=== PATIENT | female | born 1975 | race Caucasian/White ===

== ENCOUNTER 2016-08-12 12:53 | Emergency (ER) | payer OTHER, MEDICAID ==
[2016-08-12] MEDS ORDERED: DEXAMETHASONE 10 MG/ML VIAL PO STA (14:06)
[2016-08-12] MEDS ORDERED: KETOROLAC 60 MG/2 ML VIAL IM STA (14:06)
--- NOTE | 2016-08-12 14:09 | ED Physician Documentation ---
PD HPI BACK PAIN - Stated complaint Stated Complaint: BACK MUSCLE SPASMS - Chief complaint Chief Complaint: Back Pain - History obtained from History obtained from: Patient, Family - History of Present Illness Timing - onset: Today Timing - duration: Hours Timing - details: Gradual onset, Still present Location: Mid Quality: Pain, Spasm, Sharp Associated symptoms: No: Fever, Weakness, Numbness, Incontinent of urine, Unable to urinate, Hematuria, Incontinent of stool Improves with: Rest, Position Worsened by: Movement, Lifting, Twisting, Palpation Contributing factors: Other (The patient does not drink much water she drinks coffee and is likely dehydrated by history) Similar symptoms before: Has not had sx before Recently seen: Not recently seen - Additional information Additional information: 41 y/o female has developed pain in her mid back that is severe and seems to have come without a precipitant. 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 Review of Systems Constitutional: denies: Fever Nose: denies: Congestion Throat: denies: Sore throat Cardiac: denies: Chest pain / pressure, Palpitations Respiratory: denies: Dyspnea, Cough, Wheezing GI: denies: Abdominal Pain, Nausea, Vomiting : denies: Dysuria, Frequency Musculoskeletal: reports: Back pain. 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 - Present Medications Home Medications: Ambulatory Orders Medication Instructions Recorded Confirmed Cyclobenzaprine [Flexeril] 10 mg PO TID PRN #20 tablet 08/12/16 HYDROcod/ACETAM 5/325 [Calhan 5/325] 1 - 2 ea PO Q6H PRN #15 tablet 08/12/16 - Allergies Allergies/Adverse Reactions: Allergies Allergy/AdvReac Type Severity Reaction Status Date / Time codeine AdvReac Unknown Verified 08/12/16 13:08 - Social History Does the pt smoke?: No Smoking Status: Never smoker Does the pt drink ETOH?: No Does the pt have substance abuse?: No - Immunizations Immunizations are current?: Yes - POLST Patient has POLST: No PD ED PE NORMAL - Vitals Vital signs reviewed: Yes (hypertensive ) - General General: Well developed/nourished, Other (The patient appears to be in pain and is moving slowly ) - HEENT HEENT: Atraumatic, PERRL, EOMI - Cardiac Cardiac: RRR, No murmur - Respiratory Respiratory: No respiratory distress, Clear bilaterally - Abdomen Abdomen: Soft, Non tender - Back Back: No CVA TTP, Other (There is tenderness to palpation of the lower thoracic parapinous muscles that appear to be in spasm more to the left. ) - Derm Derm: Warm and dry, No rash - Extremities Extremities: No deformity, No edema - Neuro Neuro: Alert and oriented X 3, No motor deficit, No sensory deficit, Normal speech - Psych Psych: Normal mood, Normal affect Results - Vitals Vitals: Vital Signs - 24 hr 08/12/16 13:07 Temperature 36.4 C L Heart Rate 91 Respiratory 18 Rate Blood Pressure 123/84 H O2 Saturation 97 Oxygen O2 Source Room air Procedures - IVC sono (time) 1400 Bedside IVC sono: IVC measures (cm) (0.77), IVC collapsed c insp (cm) (complete) , Significant dehydration PD MEDICAL DECISION MAKING - ED course Complexity details: reviewed results, re-evaluated patient, considered differential, d/w patient, d/w family ED course: 41 y/o female with acute back spasm is found to be significantly dehydrated. She does not drink much fluid and it has been warmed up in the past 3 days. She is able to hydrate orally and here in the ED she is given deacdron and toradal. Departure - Departure Disposition: 01 Home, Self Care Clinical Impression: Back spasm Condition: Stable Instructions: ED Spasm Back No Trauma Prescriptions: Cyclobenzaprine [Flexeril] 10 mg PO TID PRN #20 tablet PRN Reason: Spasms HYDROcod/ACETAM 5/325 [Calhan 5/325] 1 - 2 ea PO Q6H PRN #15 tablet PRN Reason: Pain Comments: Today in the Emergency Department your blood pressure was elevated. This can happen from the stress of the visit itself, from a current illness or circumstance or from uncontrolled hypertension. If you take blood pressure medications take your usual mediations, have your blood pressure re-checked in an appropriate setting and follow up any elevation with your primary care doctor. Forms: Activity restrictions
[2016-08-12] MEDS ORDERED: CHERRY SYRUP 10 ML UDC PO ONE (14:11)
[2016-08-12] MEDS ORDERED: DEXAMETHASONE 10 MG/ML VIAL ONE (14:11)
[2016-08-12] MEDS ORDERED: KETOROLAC 60 MG/2 ML VIAL ONE (14:11)
[2016-08-12 14:30] VITALS: BP 141/94
== END 2016-08-12 15:22 | disposition home or self-care (01) ==
LOC: ED 12:53
DX: M62.830 Muscle spasm of back (principal); E86.0 Dehydration; R03.0 Elevated blood-pressure reading, without diagnosis of hypertension
CPT/HCPCS: 96372; 99283; A9270

== ENCOUNTER 2017-01-04 18:43 | Emergency (ER) | payer MEDICAID, OTHER ==
[2017-01-04 19:02] VITALS: BP 151/85
[2017-01-04] MEDS ORDERED: KETOROLAC 60 MG/2 ML VIAL IVP STA (19:21)
[2017-01-04] MEDS ORDERED: diphenhydrAMINE INJ 50 MG/ML VIAL IVP STA (19:21)
[2017-01-04] MEDS ORDERED: PROCHLORPERAZINE 10 MG/2 ML VIAL IVP STA (19:21)
[2017-01-04] MEDS ORDERED: SODIUM CHLORIDE 0.9% 1,000 ML IV ONE (19:23)
--- NOTE | 2017-01-04 19:23 | ED Physician Documentation ---
PD HPI HEADACHE - Stated complaint Stated Complaint: DUNN/VOMITING - Chief complaint Chief Complaint: Neuro - History obtained from History obtained from: Patient, Friend - History of Present Illness Timing - onset: Today Timing - onset during: Rest Timing - duration: Hours (5) Timing - details: Gradual onset Pain level max: 8 Pain level now: 8 Location: Left Quality: Throbbing, Aching. No: Thunderclap Associated symptoms: Nausea, Vomiting. No: Fever, Stiff neck, Weakness, Numbness, Syncope Improved by: Rest, Dark room Worsened by: Light, Noise Contributing factors: No: Anticoagulated, Possible carbon monoxide, Hypertension , Recent illness, Trauma Similar symptoms before: Diagnosis (migraines) Recently seen: Not recently seen - Additional information Additional information: took her imitrex, but vomited. Review of Systems Ten Systems: 10 systems reviewed and negative Constitutional: denies: Fever, Chills Ears: denies: Ear pain Nose: denies: Rhinorrhea / runny nose, Congestion Throat: denies: Sore throat Cardiac: denies: Chest pain / pressure Respiratory: denies: Cough GI: reports: Nausea, Vomiting Skin: denies: Rash Musculoskeletal: denies: Neck pain, Back pain Neurologic: reports: Headache. 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 - Present Medications Home Medications: Ambulatory Orders Medication Instructions Recorded Confirmed Gabapentin 300 mg PO DAILY 01/04/17 01/04/17 Metoprolol Succinate [Toprol Xl] 25 mg PO DAILY 01/04/17 01/04/17 - Allergies Allergies/Adverse Reactions: Allergies Allergy/AdvReac Type Severity Reaction Status Date / Time codeine AdvReac Unknown Verified 08/12/16 13:08 - Social History Does the pt smoke?: No Smoking Status: Never smoker Does the pt drink ETOH?: No Does the pt have substance abuse?: No - Immunizations Immunizations are current?: Yes - POLST Patient has POLST: No PD ED PE NORMAL - Vitals Vital signs reviewed: Yes - General General: Alert and oriented X 3, Other (appears uncomfortable) - HEENT HEENT: PERRL, EOMI, Ears normal, Moist mucous membranes, Pharynx benign - Neck Neck: Supple, no meningeal sign - Cardiac Cardiac: RRR - Respiratory Respiratory: No respiratory distress, Clear bilaterally - Abdomen Abdomen: Soft, Non tender, Non distended - Back Back: No spinal TTP - Derm Derm: Warm and dry - Extremities Extremities: No edema, No calf tenderness / cord - Neuro Neuro: Alert and oriented X 3, customer advisor 2-12 intact, No motor deficit, No sensory deficit, Normal speech, Other (Normal cerebellar test) - Psych Psych: Normal mood, Normal affect Results - Vitals Vitals: Vital Signs - 24 hr 01/04/17 18:51 Temperature 36.1 C L Heart Rate 87 Respiratory 20 Rate Blood Pressure 151/85 H O2 Saturation 99 Oxygen O2 Source Room air - Labs Labs: Laboratory Tests 01/04/17 01/04/17 19:35 19:35 WBC 8.9 RBC 4.93 Hgb 14.8 Hct 43.3 MCV 87.8 MCH 30.1 MCHC 34.3 RDW 12.6 Plt Count 239 MPV 7.4 L Neut # 6.7 H Lymph # 1.6 [place] # 0.5 Eos # 0.1 Baso # 0.1 Absolute Nucleated RBC 0.00 Nucleated RBC % 0.0 Sodium 137 Potassium 3.6 Chloride 103 Carbon Dioxide 24 Anion Gap 10.0 BUN 15 Creatinine 0.7 Estimated GFR (MDRD) 93 Glucose 117 H Calcium 9.4 PD MEDICAL DECISION MAKING - ED course Complexity details: reviewed results, re-evaluated patient, considered differential, d/w patient ED course: Patient is a 41-year-old female who presents to the emergency department with a migraine headache. Given Toradol, Compazine, Benadryl, IV fluids. Nausea and vomiting resolved. Headache decreased down to a 5 out of 10 and she requests to go home at this time. No evidence of subarachnoid hemorrhage, meningitis, encephalitis. No evidence of tumor. Patient counseled regarding signs and symptoms for which I believe and urgent re-evaluation would be necessary. Patient with good understanding of and agreement to plan and is comfortable going home at this time This document was made in part using voice recognition software. While efforts are made to proofread this document, sound alike and grammatical errors may occur. Departure - Departure Disposition: 01 Home, Self Care Clinical Impression: Migraine Qualifiers: Migraine type: unspecified Status migrainosus presence: without status migrainosus Intractability: not intractable Qualified Code(s): G43.909 - Migraine, unspecified, not intractable, without status migrainosus Condition: Good Instructions: ED Headache Migraine Follow-Up: Pedro Mireles DO [Primary Care Provider] - Within 1 week Comments: Do not drive for the next 8 hours. Return if you worsen. Your blood pressure was elevated today on check in to the emergency department. This does not mean that you have hypertension, it is a common phenomenon to check into the emergency department and have elevated blood pressure. I recommend that you see your primary care physician within the week to have it rechecked when you're feeling better. Discharge Date/Time: 01/04/17 20:24
[2017-01-04] MEDS ORDERED: diphenhydrAMINE INJ 50 MG/ML VIAL ONE (19:31)
[2017-01-04] MEDS ORDERED: KETOROLAC 60 MG/2 ML VIAL ONE (19:31)
[2017-01-04] MEDS ORDERED: PROCHLORPERAZINE 10 MG/2 ML VIAL ONE (19:31)
[2017-01-04 19:47] LABS: BASOPHILS # (AUTO) 0.1 10^3/uL (0.0-0.1); BASOPHILS % (AUTO) 0.6 %; EOSINOPHILS # (AUTO) 0.1 10^3/uL (0.0-0.7); EOSINOPHILS % (AUTO) 0.8 %; HCT - HEMATOCRIT 43.3 % (37.0-47.0); HGB - HEMOGLOBIN 14.8 g/dL (12.0-16.0); LYMPHOCYTES # (AUTO) 1.6 10^3/uL (1.5-3.5); LYMPHOCYTES % (AUTO) 17.6 %; MEAN CORPUSCULAR HEMOGLOBIN 30.1 pg (27.0-31.0); MEAN CORPUSCULAR HGB CONC 34.3 g/dL (32.0-36.0); MEAN CORPUSCULAR VOLUME 87.8 fL (81.0-99.0); MEAN PLATELET VOLUME 7.4 fL (7.9-10.8); MONOCYTES # (AUTO) 0.5 10^3/uL (0.0-1.0); MONOCYTES % (AUTO) 5.2 %; NEUTROPHILS # (AUTO) 6.7 10^3/uL (1.5-6.6); NEUTROPHILS % (AUTO) 75.8 %; RED BLOOD COUNT 4.93 10^6/uL (4.20-5.40); RED CELL DISTRIBUTION WIDTH 12.6 % (12.0-15.0); UNCORRECTED WHITE BLOOD COUNT 8.9 x10^3/uL; WHITE BLOOD COUNT 8.9 x10^3/uL (4.8-10.8)
[2017-01-04 19:59] LABS: CALCIUM 9.4 mg/dL (8.5-10.3); CREATININE 0.7 mg/dL (0.4-1.0); POTASSIUM 3.6 mmol/L (3.5-5.0)
== END 2017-01-04 20:24 | disposition home or self-care (01) ==
LOC: ED 18:43
DX: G43.909 Migraine, unspecified, not intractable, without status migrainosus (principal); R03.0 Elevated blood-pressure reading, without diagnosis of hypertension
CPT/HCPCS: 36415; 80048; 85025; 96361; 96374; 96375; 99283; 99284

== ENCOUNTER 2017-03-27 17:17 | Emergency (ER) | payer OTHER ==
--- NOTE | 2017-03-27 18:06 | ED Physician Documentation ---
History of Present Illness - Stated complaint Stated Complaint: SHAKY/DIZZY - Chief complaint Chief Complaint: General - History obtained from History obtained from: Patient, Family - History of Present Illness Timing: Today Pain level max: 0 Pain level now: 0 Improved by: nothing Worsened by: nothing - Additonal information Additional information: Patient is a 41-year-old female who states she has been feeling like her heart has been "off" over the past several days. Has a history of tachycardia, but states that this feels different. Tried to see her doctor and was referred here for evaluation. She has no chest pain, no shortness of breath. She states that she feels like this may be her anxiety. She did drink a cup of coffee today. She states that she seems to notice this more when she is trying to go to bed at night or when she is resting. Does not seem to bother her when she is up moving around and busy. Review of Systems Constitutional: denies: Fever, Chills Nose: denies: Rhinorrhea / runny nose, Congestion Throat: denies: Sore throat Cardiac: reports: Palpitations. 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 - Allergies Allergies/Adverse Reactions: Allergies Allergy/AdvReac Type Severity Reaction Status Date / Time codeine AdvReac Unknown Verified 03/27/17 18:27 - Social History Does the pt smoke?: No Smoking Status: Never smoker Does the pt drink ETOH?: No Does the pt have substance abuse?: No - Immunizations Immunizations are current?: Yes - POLST Patient has POLST: No PD ED PE NORMAL - Vitals Vital signs reviewed: Yes - General General: Alert and oriented X 3, No acute distress, Well developed/nourished - HEENT HEENT: Moist mucous membranes - Neck Neck: Supple, no meningeal sign - Cardiac Cardiac: RRR, No murmur, Strong equal pulses - Respiratory Respiratory: No respiratory distress, Clear bilaterally - Derm Derm: Warm and dry - Extremities Extremities: No edema - Neuro Neuro: Alert and oriented X 3 - Psych Psych: Normal mood, Normal affect Results - Vitals Vitals: Vital Signs - 24 hr 03/27/17 03/27/17 17:22 19:36 Temperature 36.0 C L Heart Rate 76 83 Respiratory 16 18 Rate Blood Pressure 125/83 H 137/93 H O2 Saturation 99 100 Oxygen O2 Source Room air - EKG (time done) 1732 Rate: Rate (enter#) (81) Rhythm: NSR Carmen: Normal Intervals: Normal [place] QRS: Normal Ischemia: Normal ST segments - Labs Labs: Laboratory Tests 03/27/17 03/27/17 03/27/17 18:30 18:30 18:30 WBC 8.1 RBC 4.89 Hgb 14.5 Hct 42.3 MCV 86.5 MCH 29.6 MCHC 34.2 RDW 12.5 Plt Count 280 MPV 7.0 L Neut # 5.3 Lymph # 2.1 Walsh # 0.5 Eos # 0.1 Baso # 0.1 Absolute Nucleated RBC 0.01 Nucleated RBC % 0.1 Sodium 136 Potassium 3.7 Chloride 100 L Carbon Dioxide 26 Anion Gap 10.0 BUN 14 Creatinine 0.8 Estimated GFR (MDRD) 80 L Glucose 96 Calcium 9.7 TSH 1.60 Free T4 0.87 PD MEDICAL DECISION MAKING - ED course Complexity details: reviewed results, re-evaluated patient, considered differential, d/w patient, d/w family ED course: Patient is a 41-year-old female who presents to the emergency department with palpitations. No acute findings on telemetry. Even when she was experiencing symptoms, her telemetry did not change. No PVCs or PACs. No cardiac arrhythmia. Normal electrolytes and thyroid testing. We will have her follow- up with her doctor for further evaluation and care. Patient counseled regarding signs and symptoms for which I believe and urgent re-evaluation would be necessary. Patient with good understanding of and agreement to plan and is comfortable going home at this time This document was made in part using voice recognition software. While efforts are made to proofread this document, sound alike and grammatical errors may occur. Departure - Departure Disposition: 01 Home, Self Care Clinical Impression: Palpitations Condition: Good Instructions: ED Palpitations Follow-Up: Pedro Mireles DO [Primary Care Provider] - Within 1 week Comments: Return if you worsen. Your labs are normal today. Discharge Date/Time: 03/27/17 19:42
[2017-03-27 18:38] LABS: BASOPHILS # (AUTO) 0.1 10^3/uL (0.0-0.1); BASOPHILS % (AUTO) 0.9 %; EOSINOPHILS # (AUTO) 0.1 10^3/uL (0.0-0.7); EOSINOPHILS % (AUTO) 1.2 %; HGB - HEMOGLOBIN 14.5 g/dL (12.0-16.0); LYMPHOCYTES # (AUTO) 2.1 10^3/uL (1.5-3.5); LYMPHOCYTES % (AUTO) 25.8 %; MEAN CORPUSCULAR HEMOGLOBIN 29.6 pg (27.0-31.0); MEAN CORPUSCULAR HGB CONC 34.2 g/dL (32.0-36.0); MEAN CORPUSCULAR VOLUME 86.5 fL (81.0-99.0); MONOCYTES # (AUTO) 0.5 10^3/uL (0.0-1.0); MONOCYTES % (AUTO) 6.4 %; NEUTROPHILS # (AUTO) 5.3 10^3/uL (1.5-6.6); NEUTROPHILS % (AUTO) 65.7 %; PLT - PLATELET COUNT 280 10^3/uL (130-450); RED BLOOD COUNT 4.89 10^6/uL (4.20-5.40); RED CELL DISTRIBUTION WIDTH 12.5 % (12.0-15.0); WHITE BLOOD COUNT 8.1 x10^3/uL (4.8-10.8)
[2017-03-27 18:47] LABS: CALCIUM 9.7 mg/dL (8.5-10.3); CREATININE 0.8 mg/dL (0.4-1.0)
[2017-03-27 19:07] LABS: THYROID STIMULATING HORMONE 1.6 uIU/mL (0.34-5.60)
[2017-03-27 19:11] LABS: FREE T4 (FREE THYROXINE) 0.87 ng/dL (0.58-1.64)
[2017-03-27 19:41] VITALS: BP 137/93
== END 2017-03-27 19:42 | disposition home or self-care (01) ==
LOC: ED 17:17
DX: R00.2 Palpitations (principal)
CPT/HCPCS: 36415; 80048; 84439; 84443; 85025; 93005; 99283

== ENCOUNTER 2018-07-31 18:47 | Emergency (ER) | payer OTHER ==
[2018-07-31 19:26] LABS: BASOPHILS # (AUTO) 0.1 10^3/uL (0.0-0.1); BASOPHILS % (AUTO) 1.1 %; EOSINOPHILS # (AUTO) 0.1 10^3/uL (0.0-0.7); EOSINOPHILS % (AUTO) 1.7 %; HGB - HEMOGLOBIN 13.4 g/dL (12.0-16.0); LYMPHOCYTES # (AUTO) 2.4 10^3/uL (1.5-3.5); LYMPHOCYTES % (AUTO) 35.7 %; MEAN CORPUSCULAR HEMOGLOBIN 30.3 pg (27.0-31.0); MEAN CORPUSCULAR HGB CONC 34.4 g/dL (32.0-36.0); MEAN CORPUSCULAR VOLUME 88.2 fL (81.0-99.0); MEAN PLATELET VOLUME 7.3 fL (7.9-10.8); MONOCYTES # (AUTO) 0.4 10^3/uL (0.0-1.0); MONOCYTES % (AUTO) 6.4 %; NEUTROPHILS # (AUTO) 3.7 10^3/uL (1.5-6.6); NEUTROPHILS % (AUTO) 55.1 %; PLT - PLATELET COUNT 287 10^3/uL (130-450); RED BLOOD COUNT 4.42 10^6/uL (4.20-5.40); RED CELL DISTRIBUTION WIDTH 12.9 % (12.0-15.0); WHITE BLOOD COUNT 6.7 x10^3/uL (4.8-10.8)
[2018-07-31 19:52] LABS: ALBUMIN 4.3 g/dL (3.2-5.5); ALBUMIN/GLOBULIN RATIO 1.3 (1.0-2.2); BILIRUBIN,TOTAL 0.5 mg/dL (0.2-1.0); CREATININE 0.8 mg/dL (0.4-1.0); TOTAL PROTEIN 7.5 g/dL (6.7-8.2)
--- NOTE | 2018-07-31 19:57 | ED Physician Documentation ---
PD HPI CHEST PAIN - Stated complaint Stated Complaint: TIGH CHEST - Chief complaint Chief Complaint: Cardiac - History obtained from History obtained from: Patient - History of Present Illness Timing - onset: Other (This is a 42-year-old woman with history of "angina." She says that she was diagnosed with this via an event monitor a few years ago in [place]. Subsequently was on metoprolol and propranolol with relief. She also has chronic pedal edema for which she takes on and off furosemide. For the last week she has had a different new chest pain. Its and episodic squeezing the last 2 to 3 seconds, worse with exertion. She is dizzy and has a headache with it. Currently is pain-free.) Review of Systems Ten Systems: 10 systems reviewed and negative Constitutional: denies: Fever, Chills Cardiac: reports: Pedal edema. 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 - Present Medications Home Medications: Ambulatory Orders Medication Instructions Recorded Confirmed Furosemide [Lasix] 20 mg PO DAILY PRN #20 tablet 07/31/18 RX: Potassium Chloride 10 meq PO DAILY PRN #20 tablet.er 07/31/18 - Allergies Allergies/Adverse Reactions: Allergies Allergy/AdvReac Type Severity Reaction Status Date / Time codeine AdvReac Unknown Verified 07/31/18 19:41 - Social History Does the pt smoke?: No Smoking Status: Former smoker Does the pt drink ETOH?: No Does the pt have substance abuse?: No - Immunizations Immunizations are current?: Yes - POLST Patient has POLST: No PD ED PE NORMAL - Vitals Vital signs reviewed: Yes - General General: Alert and oriented X 3, No acute distress - HEENT HEENT: PERRL, EOMI - Neck Neck: Supple, no meningeal sign, No bony TTP - Cardiac Cardiac: RRR, No murmur - Respiratory Respiratory: No respiratory distress, Clear bilaterally - Abdomen Abdomen: Non tender - Derm Derm: Normal color, Warm and dry - Extremities Extremities: Other (Mild pitting pedal edema, symmetric without calf tenderness) - Neuro Neuro: Alert and oriented X 3, Normal speech Results - Vitals Vitals: Vital Signs - 24 hr 07/31/18 07/31/18 07/31/18 19:00 19:34 20:24 Temperature 36.2 C L 36.5 C Heart Rate 88 76 77 Respiratory 18 21 20 Rate Blood Pressure 134/64 H 129/83 H 115/72 O2 Saturation 99 98 97 Oxygen O2 Source Room air - EKG (time done) 1853 Rate: Rate (enter#) (81) Rhythm: NSR Reese: Normal Intervals: Normal [place] QRS: Normal Ischemia: Non specific changes (Q III only) Computer interpretation: Agree with computer - Labs Labs: Laboratory Tests 07/31/18 07/31/18 07/31/18 19:20 19:20 19:20 WBC 6.7 RBC 4.42 Hgb 13.4 Hct 39.0 MCV 88.2 MCH 30.3 MCHC 34.4 RDW 12.9 Plt Count 287 MPV 7.3 L Neut # (Auto) 3.7 Lymph # (Auto) 2.4 [place] # (Auto) 0.4 Eos # (Auto) 0.1 Baso # (Auto) 0.1 Absolute Nucleated RBC 0.00 Nucleated RBC % 0.0 Sodium 140 Potassium 3.5 Chloride 108 Carbon Dioxide 23 Anion Gap 9.0 BUN 15 Creatinine 0.8 Estimated GFR (MDRD) 79 L Glucose 91 Calcium 9.0 Total Bilirubin 0.5 AST 23 ALT 20 Alkaline Phosphatase 71 Troponin I < 0.04 Total Protein 7.5 Albumin 4.3 Globulin 3.2 Albumin/Globulin Ratio 1.3 Lipase 27 - Rads (name of study) 2v chest Radiology: EMP read contemporaneously (normal) PD MEDICAL DECISION MAKING - ED course ED course: 42-year-old woman with history of angina, although she has not had a thorough cardiac work-up except she has had an event monitor in the past. She is never been stressed. She has had atypical very fleeting chest pains which would suggest a noncardiac or not least non-coronary cause. She had episodes While here in the department which did not correspond to any ectopy on the monitor. She also requested a refill of Lasix which she is taken in the past for pedal edema. There is no evidence of heart failure. Departure - Departure Disposition: 01 Home, Self Care Clinical Impression: Atypical chest pain Condition: Good Record reviewed to determine appropriate education?: Yes Instructions: ED Chest Pain Atypical Unkn Cause Prescriptions: Furosemide [Lasix] 20 mg PO DAILY PRN #20 tablet PRN Reason: edema RX: Potassium Chloride 10 meq PO DAILY PRN #20 tablet.er PRN Reason: take with furosemide Comments: Follow-up with your primary care physician, discuss a stress test. Return if worse or new symptoms develop. Discharge Date/Time: 07/31/18 20:25
--- NOTE | 2018-07-31 19:58 | XRAY Report ---
Reason: chest pain Procedure Date: 07/31/2018 Accession Number: [id number] / [id number] Procedure: XR - Chest 2 View X-Ray CPT Code: 02524 FULL RESULT: EXAM: CHEST RADIOGRAPHY EXAM DATE: 07/31/2018 07:31 PM. CLINICAL HISTORY: Chest pain and shortness of breath on exertion for 2 weeks. COMPARISON: None. TECHNIQUE: 2 views. FINDINGS: Lungs/Pleura: No focal opacities evident. No pleural effusion. No pneumothorax. Normal volumes. Mediastinum: Heart and mediastinal contours are unremarkable. Other: No osseous abnormality identified. IMPRESSION: Normal 2-view chest radiography. [facility]
[2018-07-31 20:25] VITALS: BP 115/72
== END 2018-07-31 20:25 | disposition home or self-care (01) ==
LOC: ED 18:47
DX: R07.89 Other chest pain (principal); R60.0 Localized edema; Z86.79 Personal history of other diseases of the circulatory system; Z87.891 Personal history of nicotine dependence
CPT/HCPCS: 36415; 71046; 80053; 83690; 84484; 85025; 93005; 99284

== ENCOUNTER 2019-03-23 20:33 | Emergency (ER) | payer OTHER ==
[2019-03-23 20:54] LABS: BASOPHILS % (AUTO) 0.4 %; EOSINOPHILS # (AUTO) 0.1 10^3/uL (0.0-0.7); EOSINOPHILS % (AUTO) 1.3 %; LYMPHOCYTES # (AUTO) 2.2 10^3/uL (1.5-3.5); LYMPHOCYTES % (AUTO) 26.1 %; MEAN CORPUSCULAR HEMOGLOBIN 30.3 pg (27.0-31.0); MEAN CORPUSCULAR HGB CONC 33.5 g/dL (32.0-36.0); MEAN CORPUSCULAR VOLUME 90.5 fL (81.0-99.0); MEAN PLATELET VOLUME 9.2 fL (7.9-10.8); MONOCYTES # (AUTO) 0.6 10^3/uL (0.0-1.0); MONOCYTES % (AUTO) 7.5 %; NEUTROPHILS # (AUTO) 5.5 10^3/uL (1.5-6.6); NEUTROPHILS % (AUTO) 64.3 %; PLT - PLATELET COUNT 254 10^3/uL (130-450); RED BLOOD COUNT 4.62 10^6/uL (4.20-5.40); RED CELL DISTRIBUTION WIDTH 11.9 % (12.0-15.0); WHITE BLOOD COUNT 8.6 x10^3/uL (4.8-10.8)
[2019-03-23 20:57] LABS: BILIRUBIN,URINE NEGATIVE (NEGATIVE); GLUCOSE, URINE (UA) NEGATIVE (NEGATIVE); KETONES,URINE (UA) NEGATIVE (NEGATIVE); LEUKOCYTE ESTERASE, URINE NEGATIVE (NEGATIVE); NITRITE,URINE NEGATIVE (NEGATIVE); OCCULT BLOOD,URINE TRACE-INTA (NEGATIVE); PH,URINE 5.5 PH (5.0-7.5); PROTEIN,URINE NEGATIVE (NEGATIVE); UROBILINOGEN,URINE 0.2 (NORMAL) E.U./dL (NORMAL)
[2019-03-23 21:01] LABS: CLARITY,URINE CLEAR (CLEAR); HCG UR QUAL NEGATIVE
[2019-03-23 21:06] LABS: ALBUMIN 4.3 g/dL (3.2-5.5); ALBUMIN/GLOBULIN RATIO 1.3 (1.0-2.2); BILIRUBIN,TOTAL 0.5 mg/dL (0.2-1.0); CALCIUM 9.1 mg/dL (8.5-10.3); CREATININE 0.8 mg/dL (0.4-1.0); TOTAL PROTEIN 7.7 g/dL (6.7-8.2)
[2019-03-23] MEDS ORDERED: SODIUM CHLORIDE 0.9% 1,000 ML IV ONE (21:19)
--- NOTE | 2019-03-23 21:23 | ED Physician Documentation ---
PD HPI FEMALE - Stated complaint Stated Complaint: F ,BACK PX - Chief complaint Chief Complaint: UTI - History obtained from History obtained from: Patient, Family - History of Present Illness Timing - onset: How many days ago (3) Timing - duration: Days (3) Timing - details: Gradual onset, Still present Associated symptoms: Dysuria, Urinary frequency Contributing factors: No: Similar symptoms before: Diagnosis (UTI) Recently seen: Surgery - Additional information Additional information: 43-year-old female with a right kidney stone that has undergone lithotripsy has fragments of the stone remaining in the right collecting system. She is due to have a repeat lithotripsy at the end of this month. She is now having symptoms of urinary urgency and dysuria feeling like she has an irritation to her urethra and pain after she urinates in her bladder itself. She has had these symptoms previously when she has passed kidney stone. She is currently on antibiotic for an ear infection she is on some amoxicillin and she states that she has had yeast infection previously and this does not feel anything like that. She is not having any redness or itching. She is not having any discharge. Review of Systems Constitutional: denies: Fever, Chills Eyes: denies: Decreased vision Ears: denies: Ear pain Nose: denies: Congestion Throat: denies: Sore throat Cardiac: denies: Chest pain / pressure, Palpitations Respiratory: denies: Dyspnea, Cough GI: denies: Abdominal Pain, Nausea, Vomiting : reports: Dysuria, Frequency Skin: denies: Rash Musculoskeletal: reports: Back pain (Right flank pain is sore.). 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 EQUIPMENT OPERATOR: Hysterectomy - Present Medications Home Medications: Ambulatory Orders Medication Instructions Recorded Confirmed Furosemide [Lasix] 20 mg PO DAILY PRN #20 tablet 07/31/18 Potassium Chloride 10 meq PO DAILY PRN #20 tablet.er 07/31/18 Amoxicillin 500 mg PO BID 03/23/19 03/23/19 - Allergies Allergies/Adverse Reactions: Allergies Allergy/AdvReac Type Severity Reaction Status Date / Time codeine AdvReac Unknown Verified 03/23/19 20:42 hydrocodone AdvReac Itching Verified 03/23/19 20:43 - Social History Does the pt smoke?: No Smoking Status: Former smoker Does the pt drink ETOH?: No Does the pt have substance abuse?: No - Immunizations Immunizations are current?: Yes - POLST Patient has POLST: No PD ED PE NORMAL - Vitals Vital signs reviewed: Yes - General General: Alert and oriented X 3, No acute distress, Well developed/nourished - HEENT HEENT: Atraumatic, PERRL, EOMI - Neck Neck: Supple, no meningeal sign - Cardiac Cardiac: RRR, No murmur - Respiratory Respiratory: No respiratory distress, Clear bilaterally - Abdomen Abdomen: Normal bowel sounds, Soft, Non tender, Non distended, No organomegaly - Back Back: No CVA TTP, No spinal TTP - Derm Derm: Normal color, Warm and dry, No rash - Extremities Extremities: No deformity, No edema, No calf tenderness / cord - Neuro Neuro: Alert and oriented X 3, manager food beverage 2-12 intact, No motor deficit, No sensory deficit, Normal speech Eye Opening: Spontaneous Motor: Obeys Commands Verbal: Oriented GCS Score: 15 - Psych Psych: Normal mood, Normal affect Results - Vitals Vitals: Vital Signs - 24 hr 03/23/19 20:40 Temperature 36.7 C Heart Rate 80 Respiratory 18 Rate Blood Pressure 147/85 H O2 Saturation 98 Oxygen O2 Source Room air - Labs Labs: Laboratory Tests 03/23/19 03/23/19 03/23/19 20:50 20:50 20:50 WBC 8.6 RBC 4.62 Hgb 14.0 Hct 41.8 MCV 90.5 MCH 30.3 MCHC 33.5 RDW 11.9 L Plt Count 254 MPV 9.2 Neut # (Auto) 5.5 Lymph # (Auto) 2.2 [place] # (Auto) 0.6 Eos # (Auto) 0.1 Baso # (Auto) 0.0 Absolute Nucleated RBC 0.00 Nucleated RBC % 0.0 Sodium 137 Potassium 3.4 L Chloride 102 Carbon Dioxide 28 Anion Gap 7.0 BUN 14 Creatinine 0.8 Estimated GFR (MDRD) 79 L Glucose 109 H Calcium 9.1 Total Bilirubin 0.5 AST 15 ALT 14 Alkaline Phosphatase 71 Total Protein 7.7 Albumin 4.3 Globulin 3.4 Albumin/Globulin Ratio 1.3 Lipase 32 Urine Color YELLOW Urine Clarity CLEAR Urine pH 5.5 Ur Specific [place] >=1.030 H Urine Protein NEGATIVE Urine Glucose (UA) NEGATIVE Urine Ketones NEGATIVE Urine Occult Blood TRACE-INTA Urine Nitrite NEGATIVE Urine Bilirubin NEGATIVE Urine Urobilinogen 0.2 (NORMAL) Ur Leukocyte Esterase NEGATIVE Ur Microscopic Review NOT INDICATED Urine Culture Comments NOT INDICATED Urine HCG, Qual NEGATIVE - Rads (name of study) ct ab/pel w/o Radiology: Prelim report reviewed (Impression: Nonobstructing 4 mm lower pole right renal calculus.. Otherwise unremarkable exam.), EMP read indepedently, See rad report Procedures - Bedside sono Bedside sono by EMP: With use of bedside ultrasound the kidneys are both imaged they are sonographically nontender there is no evidence of obvious hydronephrosis on either side. - IVC sono (time) 2119 Bedside IVC sono: IVC measures (cm) (0.94), IVC collapsed c insp (cm) (complete), Dehydration (est 1-2 liter deficit) PD MEDICAL DECISION MAKING - ED course Complexity details: reviewed results, re-evaluated patient, considered differential, d/w patient, d/w family ED course: 43-year-old female with urinary urgency and dysuria with residual stone in the right collecting system is concerned about the possibility of infection. She most closely relates the symptoms of something this happened previously with passing stone. On my evaluation here this evening she is dehydrated and there is no evidence of hydronephrosis bilaterally. I did discuss with the patient the utilization of CT scanning for the abdomen and pelvis and she wishes to proceed with this despite the risk associated with radiation exposure. The patient is administered saline intravenously there is no evidence of infection on evaluation of the urine. The patient's CT scan shows a 4 mm stone in the right kidney and no obstruction to the collecting system. I suspect the patient's symptoms are related to dehydration and passing the stone recently. Here in the emergency department we have hydrated the patient with a liter of saline and I have asked the patient to bring the CD of her abdomen pelvis to urologist on her next visit. Departure - Departure Disposition: 01 Home, Self Care Clinical Impression: Cystitis, Dehydration Condition: Stable Instructions: ED Dehydration Follow-Up: Pema De La Cruz PA-C [Primary Care Provider] - Comments: Today we did not find any pathology in the urine specimen provided with the exception of a trace amount of blood. Your CT scan showed a 4 mm stone in the right kidney. The stone will eventually need to pass and will likely be able to pass without assistance. Bring the CD of your CAT scan to the urologist with your visit at the end of this month. We did find that you were dehydrated again and this may be contributing to your symptoms of bladder irritation. The recommendation is to drink approximately 2 quarts of fluid per day.
--- NOTE | 2019-03-23 22:11 | CT Report ---
Reason: R flank pain Procedure Date: 03/23/2019 Accession Number: [id number] / [id number] Procedure: CT - Abdomen/Pelvis WO CPT Code: Final Report FULL RESULT: EXAM: CT ABDOMEN AND PELVIS (CT KUB) EXAM DATE: 03/23/2019 09:43 PM. CLINICAL HISTORY: R flank pain. History of lithotripsy February 03. COMPARISONS: None. TECHNIQUE: Routine axial helical CT imaging was performed through the abdomen and pelvis without IV contrast. Reconstructions: Coronal and sagittal. In accordance with CT protocol optimization, one or more of the following dose reduction techniques were utilized for this exam: automated exposure control, adjustment of mA and/or KV based on patient size, or use of iterative reconstructive technique. FINDINGS: Lung Bases: Unremarkable. Right Kidney/Ureter: 4 mm calcific stone in the lower pole calyx of the right kidney. No hydronephrosis. Kidney is otherwise unremarkable in appearance. Left Kidney/Ureter: No stones, hydronephrosis, or hydroureter. No perinephric fat stranding. Other Solid Organs: Noncontrast images of the solid organs are grossly unremarkable. Gallbladder/Bile Ducts: Status post cholecystectomy. No biliary duct dilatation. Peritoneal Cavity: No free fluid, free air or letty adenopathy. Bowel is grossly unremarkable. Pelvic Organs: Status post hysterectomy. There are no bladder stones seen. The urinary bladder is fairly collapsed. Some phleboliths in the pelvis. Vasculature: The abdominal aorta is normal in caliber. Retroaortic left renal vein present. Other: None. IMPRESSION: Nonobstructing 4mm lower pole right renal calculus. Otherwise unremarkable exam. RADIA
[2019-03-23] MEDS ORDERED: POTASSIUM CHLORIDE 20 MEQ TABLET PO STA (22:28)
[2019-03-23 22:45] VITALS: BP 145/93
== END 2019-03-23 22:45 | disposition home or self-care (01) ==
LOC: ED 20:33
DX: N30.90 Cystitis, unspecified without hematuria (principal); E86.0 Dehydration; N20.0 Calculus of kidney; Z87.891 Personal history of nicotine dependence
CPT/HCPCS: 36415; 74176; 80053; 81003; 81025; 83690; 85025; 99284; A9270; 81001; 87086

== ENCOUNTER 2019-06-08 14:45 | Outpatient (CLI) | payer OTHER ==
--- NOTE | 2019-06-09 03:08 | XRAY Report ---
Reason: COUGH Procedure Date: 06/08/2019 Accession Number: [id number] / [id number] Procedure: XR - Chest 2 View X-Ray CPT Code: 45913 Final Report FULL RESULT: EXAM: CHEST RADIOGRAPHY EXAM DATE: 06/08/2019 02:58 PM CLINICAL HISTORY: Cough. COMPARISON: CHEST 2 VIEW 07/31/2018 7:24 PM. TECHNIQUE: 2 views. FINDINGS: Lungs/Pleura: Clear lungs. No pleural effusion. No pneumothorax. Mediastinum: Within exam limitations, the cardiomediastinal contour is normal. Other: Cholecystectomy clips in the right upper quadrant. IMPRESSION: 06/09/2019 03:07 RADIA
== END 2019-06-08 14:46 | disposition home or self-care (01) ==
LOC: DI 14:45
DX: R05 Cough (principal)
CPT/HCPCS: 71046

== ENCOUNTER 2020-02-16 17:33 | Outpatient (CLI) | payer OTHER | END 2020-02-16 17:34 | disposition home or self-care (01) | LOC: COV 17:33 | PROVIDERS: ATTEND Family Medicine | DX: R05 Cough (principal); J02.9 Acute pharyngitis, unspecified; R09.81 Nasal congestion; Z20.828 Contact with and (suspected) exposure to other viral communicable diseases ==

== ENCOUNTER 2020-03-18 19:11 | Emergency (ER) | payer OTHER ==
[2020-03-18 19:20] VITALS: BP 139/89
--- NOTE | 2020-03-18 19:54 | XRAY Report ---
PROCEDURE: Ankle 3 View LT INDICATIONS: fall, ankle pain TECHNIQUE: 3 views of the ankle were acquired. COMPARISON: None. FINDINGS: Bones: No fractures or dislocations. Ankle mortise is normally aligned. No suspicious bony lesions . Soft tissues: No tibiotalar joint effusion. Achilles tendon appears normal. IMPRESSION: No acute osseous abnormality. Reviewed by: Henry Cavazos MD on 03/18/2020 7:52 PM [facility] Approved by: Henry Cavazos MD on 03/18/2020 7:52 PM PST Station ID: [id number]
--- NOTE | 2020-03-18 19:55 | XRAY Report ---
PROCEDURE: Foot 3 View LT INDICATIONS: rolled L foot/injury from hiking TECHNIQUE: 3 views of the foot were acquired. COMPARISON: None. FINDINGS: Bones: No fractures or dislocations. No suspicious bony lesions. Soft tissues: No tibiotalar joint effusion. Achilles tendon appears normal. IMPRESSION: No acute osseous abnormality. Reviewed by: Henry Cavazos MD on 03/18/2020 7:53 PM [facility] Approved by: Henry Cavazos MD on 03/18/2020 7:53 PM [facility] Station ID: [id number]
--- NOTE | 2020-03-18 20:14 | ED Physician Documentation ---
History of Present Illness - Stated complaint Stated Complaint: LEFT ANKLE PX/FOOT INJURY - Chief complaint Chief Complaint: Trauma Ext - History obtained from History obtained from: Patient - History of Present Illness Timing: Today Pain level max: 6 Pain level now: 4 - Additonal information Additional information: 44-year-old female states that she was hiking at [place] today when she rolled her left foot and ankle over a tree root. Worse with walking, better with rest. 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: Hysterectomy - Present Medications Home Medications: Ambulatory Orders Medication Instructions Recorded Confirmed Ibuprofen [Motrin] 800 mg PO Q8H PRN #30 tablet 03/18/20 Tamsulosin HCl [Flomax] 03/18/20 - Allergies Allergies/Adverse Reactions: Allergies Allergy/AdvReac Type Severity Reaction Status Date / Time codeine AdvReac Unknown Verified 03/18/20 19:21 hydrocodone AdvReac Itching Verified 03/18/20 19:21 - Social History Does the pt smoke?: No Smoking Status: Never smoker Does the pt drink ETOH?: No Does the pt have substance abuse?: No - Immunizations Immunizations are current?: Yes - POLST Patient has POLST: No PD ED PE NORMAL - Vitals Vital signs reviewed: Yes - General General: Alert and oriented X 3, No acute distress - Derm Derm: Warm and dry - Extremities Extremities: Other (Mild tenderness to palpation over the lateral malleolus of the left ankle as well as the base of the fifth metatarsal of the left foot. Otherwise normal examination of the foot and ankle. Neurovascular intact) - Neuro Neuro: Alert and oriented X 3 Results - Vitals Vitals: Vital Signs - 24 hr 03/18/20 19:15 Temperature 36.0 C L Heart Rate 90 Respiratory 16 Rate Blood Pressure 139/89 H O2 Saturation 95 Oxygen O2 Source Room air - Rads (name of study) Left ankle x-ray Radiology: Prelim report reviewed, EMP read contemporaneously, See rad report (No acute abnormality) L foot xray Radiology: Prelim report reviewed, EMP read contemporaneously, See rad report (No acute abnormality) PD MEDICAL DECISION MAKING - ED course Complexity details: reviewed results, considered differential, d/w patient ED course: Patient with left ankle/foot sprain. No acute findings on x-ray. Placed in a Aircast. Given crutches. We will have her follow-up with her doctor for further care. Patient counseled regarding signs and symptoms for which I believe and urgent re-evaluation would be necessary. Patient with good understanding of and agreement to plan and is comfortable going home at this time This document was made in part using voice recognition software. While efforts are made to proofread this document, sound alike and grammatical errors may o ccur. Departure - Departure Disposition: Home, Self Care Clinical Impression: Left ankle sprain Qualifiers: Encounter type: initial encounter Involved ligament of ankle: unspecified ligament Qualified Code(s): S93.402A - Sprain of unspecified ligament of left ankle, initial encounter Sprain of left foot Qualifiers: Encounter type: initial encounter Qualified Code(s): S93.602A - Unspecified sprain of left foot, initial encounter Condition: Good Instructions: ED Sprain Foot, ED Sprain Ankle Follow-Up: Pema De La Cruz PA-C [Primary Care Provider] - Within 1 week Prescriptions: Ibuprofen [Motrin] 800 mg PO Q8H PRN #30 tablet PRN Reason: PAIN &/OR FEVER Comments: Your x-rays do not show any acute abnormalities tonight. Follow-up with your doctor for further care. You may bear weight as tolerated. If you are still having pain in 1 week, your doctor may want to repeat x-rays at that time. Discharge Date/Time: 03/18/20 20:18
== END 2020-03-18 20:18 | disposition home or self-care (01) ==
LOC: ED 19:11
DX: S93.402A Sprain of unspecified ligament of left ankle, initial encounter (principal); S93.602A Unspecified sprain of left foot, initial encounter; X50.1XXA Overexertion from prolonged static or awkward postures, initial encounter; Y93.01 Activity, walking, marching and hiking; Y92.838 Other recreation area as the place of occurrence of the external cause
CPT/HCPCS: 99283

== ENCOUNTER 2020-03-26 16:54 | Emergency (ER) | payer OTHER ==
[2020-03-26 17:32] LABS: BASOPHILS % (AUTO) 0.5 %; EOSINOPHILS # (AUTO) 0.1 10^3/uL (0.0-0.7); EOSINOPHILS % (AUTO) 1.7 %; HGB - HEMOGLOBIN 13.7 g/dL (12.0-16.0); LYMPHOCYTES # (AUTO) 1.6 10^3/uL (1.5-3.5); LYMPHOCYTES % (AUTO) 26.6 %; MEAN CORPUSCULAR HEMOGLOBIN 30.2 pg (27.0-31.0); MEAN CORPUSCULAR HGB CONC 33.7 g/dL (32.0-36.0); MEAN CORPUSCULAR VOLUME 89.6 fL (81.0-99.0); MONOCYTES # (AUTO) 0.5 10^3/uL (0.0-1.0); MONOCYTES % (AUTO) 7.7 %; NEUTROPHILS # (AUTO) 3.8 10^3/uL (1.5-6.6); NEUTROPHILS % (AUTO) 63.3 %; PLT - PLATELET COUNT 231 10^3/uL (130-450); RED BLOOD COUNT 4.53 10^6/uL (4.20-5.40); RED CELL DISTRIBUTION WIDTH 11.8 % (12.0-15.0)
[2020-03-26 17:33] LABS: BILIRUBIN,URINE NEGATIVE (NEGATIVE); GLUCOSE, URINE (UA) NEGATIVE (NEGATIVE); KETONES,URINE (UA) NEGATIVE (NEGATIVE); LEUKOCYTE ESTERASE, URINE NEGATIVE (NEGATIVE); NITRITE,URINE NEGATIVE (NEGATIVE); OCCULT BLOOD,URINE NEGATIVE (NEGATIVE); PH,URINE 6.5 PH (5.0-7.5); PROTEIN,URINE NEGATIVE (NEGATIVE); UROBILINOGEN,URINE 0.2 (NORMAL) E.U./dL (NORMAL)
[2020-03-26 17:36] LABS: CLARITY,URINE CLEAR (CLEAR); HCG UR QUAL NEGATIVE
[2020-03-26] MEDS ORDERED: SODIUM CHLORIDE 0.9% 1,000 ML IV STA (17:43)
[2020-03-26] MEDS ORDERED: LIDOCAINE-MPF 2% 7.5 ML in SODIUM CHLORIDE 0.9% 50 ML IV STA (17:43)
[2020-03-26 17:45] LABS: ALBUMIN/GLOBULIN RATIO 1.3 (1.0-2.2); BILIRUBIN,TOTAL 0.2 mg/dL (0.2-1.0); CALCIUM 9.3 mg/dL (8.5-10.3); CREATININE 0.9 mg/dL (0.4-1.0); TOTAL PROTEIN 7.1 g/dL (6.7-8.2)
[2020-03-26] MEDS ORDERED: LIDOCAINE-MPF 2% 5 ML VIAL ONE (18:01)
--- NOTE | 2020-03-26 18:01 | ED Physician Documentation ---
PD HPI ABD PAIN - Stated complaint Stated Complaint: FEMALE - Chief complaint Chief Complaint: Abd Pain - History obtained from History obtained from: Patient - History of Present Illness Timing - onset: How many weeks ago (1) Timing - duration: Weeks (1) Timing - details: Gradual onset Pain level max: 7 Pain level now: 7 Quality: Aching, Pain Location: Other (right flank) Radiation: Other (non-radiating) Improved by: Other (nothing) Worsened by: Other (nothing) - Additional information Additional information: 44-year-old female states that she has a known 3 mm intrarenal stone. She states that she is unable to pass kidney stones and so when she forms them in her kidneys, they do lithotripsy to break them apart. She states she has lithotripsy scheduled on Saturday. Started having dysuria 2 days ago. No fevers. No nausea. No vomiting. She is on Percocet for home for the pain and states that that does help the pain, she was concerned because the pain increased and she thought she may have a UTI today. No vomiting. No nausea. Had an x-ray and CT scan performed last week. No ureteral stones Review of Systems Constitutional: denies: Fever, Chills GI: denies: Vomiting, Diarrhea : reports: Dysuria. 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: Hysterectomy - Present Medications Home Medications: Ambulatory Orders Medication Instructions Recorded Confirmed Ibuprofen [Motrin] 800 mg PO Q8H PRN #30 tablet 03/18/20 03/26/20 Ondansetron Odt [Zofran] 4 mg TL Q6H PRN #10 tablet 03/26/20 Oxycodone HCl/Acetaminophen 1 - 2 each PO Q6H PRN #20 tablet 03/26/20 [Percocet 5-325 mg Tablet] oxyCODONE/ACET 5/325 [Percocet 5 1 tab PO DAILY PRN 03/26/20 03/26/20 mg/325 mg] - Allergies Allergies/Adverse Reactions: Allergies Allergy/AdvReac Type Severity Reaction Status Date / Time codeine AdvReac Hives Verified 03/26/20 16:58 hydrocodone AdvReac Itching Verified 03/18/20 19:21 tamsulosin AdvReac Dizziness Verified 03/26/20 16:59 - Social History Does the pt smoke?: No Smoking Status: Never smoker Does the pt drink ETOH?: No Does the pt have substance abuse?: No - Immunizations Immunizations are current?: Yes - POLST Patient has POLST: No PD ED PE NORMAL - Vitals Vital signs reviewed: Yes - General General: Alert and oriented X 3, No acute distress, Well developed/nourished - HEENT HEENT: PERRL, Moist mucous membranes - Neck Neck: Supple, no meningeal sign - Cardiac Cardiac: RRR, Strong equal pulses - Respiratory Respiratory: No respiratory distress, Clear bilaterally - Abdomen Abdomen: Soft, Non tender, Non distended - Back Back: No CVA TTP - Derm Derm: Warm and dry - Neuro Neuro: Alert and oriented X 3 - Psych Psych: Normal mood, Normal affect Results - Vitals Vitals: Vital Signs - 24 hr 03/26/20 03/26/20 03/26/20 16:59 18:02 18:51 Temperature 36.9 C 36.9 C Heart Rate 82 76 75 Respiratory 18 16 18 Rate Blood Pressure 151/102 H 117/76 115/80 O2 Saturation 100 100 100 Oxygen O2 Source Room air - Labs Labs: Laboratory Tests 03/26/20 03/26/20 03/26/20 17:06 17:20 17:20 WBC 6.0 RBC 4.53 Hgb 13.7 Hct 40.6 MCV 89.6 MCH 30.2 MCHC 33.7 RDW 11.8 L Plt Count 231 MPV 9.0 Neut # (Auto) 3.8 Lymph # (Auto) 1.6 [place] # (Auto) 0.5 Eos # (Auto) 0.1 Baso # (Auto) 0.0 Absolute Nucleated RBC 0.00 Nucleated RBC % 0.0 Sodium 137 Potassium 3.5 Chloride 103 Carbon Dioxide 27 Anion Gap 7.0 BUN 14 Creatinine 0.9 Estimated GFR (MDRD) 69 L Glucose 106 H Calcium 9.3 Total Bilirubin 0.2 AST 19 ALT 20 Alkaline Phosphatase 68 Total Protein 7.1 Albumin 4.0 Globulin 3.1 Albumin/Globulin Ratio 1.3 Lipase 42 Urine Color YELLOW Urine Clarity CLEAR Urine pH 6.5 Ur Specific [place] 1.020 Urine Protein NEGATIVE Urine Glucose (UA) NEGATIVE Urine Ketones NEGATIVE Urine Occult Blood NEGATIVE Urine Nitrite NEGATIVE Urine Bilirubin NEGATIVE Urine Urobilinogen 0.2 (NORMAL) Ur Leukocyte Esterase NEGATIVE Ur Microscopic Review NOT INDICATED Urine Culture Comments NOT INDICATED Urine HCG, Qual NEGATIVE PD MEDICAL DECISION MAKING - ED course Complexity details: reviewed results, re-evaluated patient, considered differential, d/w patient ED course: No evidence of UTI or infection here. Had a CT scan within the last week. Will not repeat this today. Pain well controlled on the IV lidocaine drip. We will prescribe pain medication for home and have her follow-up with her urologist next week as scheduled. Patient is well-appearing, nontoxic. Afebrile. Patient counseled regarding signs and symptoms for which I believe and urgent re-evaluation would be necessary. Patient with good understanding of and agreement to plan and is comfortable going home at this time This document was made in part using voice recognition software. While efforts are made to proofread this document, sound alike and grammatical errors may occur. Departure - Departure Disposition: , Self Care Clinical Impression: Renal stone Condition: Good Instructions: ED Stone Renal W Colic Follow-Up: Pema De La Cruz PA-C [Primary Care Provider] - Within 1 week Prescriptions: Oxycodone HCl/Acetaminophen [Percocet 5-325 mg Tablet] 1 - 2 each PO Q6H PRN #20 tablet PRN Reason: pain Ondansetron Odt [Zofran] 4 mg TL Q6H PRN #10 tablet PRN Reason: Nausea / Vomiting Comments: Return if you worsen. Follow up with your urologist on saturday as scheduled. Do not drink alcohol or drive while on narcotic pain medicine. Note that many narcotic pain relievers also contain tylenol/acetaminophen. Please ensure that your total dose of acetaminophen from all sources does not exceed 3 grams (3000mg) per day. You may constipated on this medication, take a stool softener such as "Colace" twice a day while you are on it. Also recommend a drts-hne-odrqyaw laxative such as senna or MiraLAX any day that you do not have a bowel movement. If you received narcotic pain medication in the emergency department, do not drive or operate machinery for the next 24 hours. Discharge Date/Time: 03/26/20 18:51
[2020-03-26 18:52] VITALS: BP 115/80
--- OUTSIDE RECORDS SUMMARY | 2020-03-30 01:53 | EXTERNAL MEDICAL SUMMARY RPT | Continuity of Care Document ---
:1975 Demographics Phone Unavailable Preferred Language Mauritanian Marital Status Unknown Scientologist Affiliation Unknown Race Unknown Ethnic Group Unknown Author Organization [facility] Address [address] [place] [address] Phone Care Team Providers Name Role Phone Jono Unavailable Unavailable Lemme Unavailable Unavailable Problems date description facility 2015-12-30 16:12 TACHYCARDIA, UNSPECIFIED [facility] 2016-08-12 12:53 DEHYDRATION [facility] 2016-08-12 12:53 MUSCLE SPASM OF BACK [facility] 2016-08-12 12:53 ELEVATED BLOOD-PRESSURE READING, [facility] W/O DIAGNOSIS OF HTN 2017-01-04 18:43 MIGRAINE, UNSP, NOT INTRACTABLE, [facility] WITHOUT STATUS MIGRAINOSUS 2017-01-04 18:43 ELEVATED BLOOD-PRESSURE READING, [facility] W/O DIAGNOSIS OF HTN 2017-01-04 18:43 HEADACHE [facility] 2017-03-27 17:17 PALPITATIONS [facility] 2018-07-31 18:47 OTHER CHEST PAIN [facility] 2018-07-31 18:47 LOCALIZED EDEMA [facility] 2018-07-31 18:47 PERSONAL HISTORY OF OTHER DISEASES [facility] 2018-07-31 18:47 PERSONAL HISTORY OF NICOTINE [facility] DEPENDENCE 2019-03-23 20:33 CYSTITIS, UNSPECIFIED WITHOUT [facility] HEMATURIA 2019-03-23 20:33 DEHYDRATION [facility] 2019-03-23 20:33 CALCULUS OF KIDNEY [facility] 2019-03-23 20:33 DYSURIA [facility] 2019-03-23 20:33 PERSONAL HISTORY OF NICOTINE [facility] DEPENDENCE 2019-06-08 14:45 COUGH [facility] 2020-02-16 17:33 ACUTE PHARYNGITIS, UNSPECIFIED [facility] 2020-02-16 17:33 COUGH [facility] 2020-02-16 17:33 NASAL CONGESTION [facility] 2020-02-16 17:33 CONTACT W AND EXPOSURE TO OTH [facility] VIRAL COMMUNICABLE DISEASES 2020-03-17 10:06 Unspecified abdominal pain [facility] 2020-03-17 10:06 Personal history of urinary [facility] calculi 2020-03-18 19:11 SPRAIN OF UNSPECIFIED LIGAMENT OF [facility] LEFT ANKLE, INIT 2020-03-18 19:11 UNSPECIFIED SPRAIN OF LEFT FOOT, [facility] INITIAL ENCOUNTER 2020-03-18 19:11 OVEREXERTION FROM PROLONGED STATIC [facility] OR [facility] 2020-03-18 19:[address] [facility] 2020-03-18 19:11 ACTIVITY, WALKING, MARCHING AND [facility] HIKING Allergies date description facility [facility] DOXYCYCLINE [facility] NAPROXEN [facility] PHENTERMINE [facility] NO KNOWN ENVIRONMENTAL ALLERGIES [facility] PENICILLINS [facility] SULFA (SULFONAMIDE ANTIBIOTICS) [facility] NO KNOWN ALLERGIES [facility] DIAZE[facility]AM [facility] ASPIRIN [facility] IBUPROFEN [facility] CYCLOBENZAPRINE [facility] ONION [facility] codeine [facility] hydro[facility]one [facility] NO KNOWN ENVIRONMENTAL ALLERGIES [facility] IODINE [facility] SULFA (SULFONAMIDE ANTIBIOTICS) [facility] SULFACETAMIDE SODIUM [facility] LISINOPRIL [facility] LOSARTAN POTASSIUM [facility] PENICILLIN V POTASSIUM [facility] SU[facility]CHOLINE [facility] COREG [facility] ANTIHISTAMINES, DIPHENHYDRAMINE-TYPE [facility] IODINATED DIAGNOSTIC AGENTS [facility] NO KNOWN ENVIRONMENTAL ALLERGIES [facility] NO KNOWN ALLERGIES [facility] MINT [facility] MENTHOL [facility] GOLD AU 198 [facility] codeine [facility] hydrocodone [facility] tamsulosin [facility] Results Social History date description facility [id number]
== END 2020-03-26 18:51 | disposition home or self-care (01) ==
LOC: ED 16:54
DX: N20.0 Calculus of kidney (principal)
CPT/HCPCS: 80053; 81003; 81025; 83690; 85025; 96365; 99284; J7040; 81001; 87086

== ENCOUNTER 2020-11-02 18:48 | Emergency (ER) | payer OTHER ==
--- NOTE | 2020-11-02 19:17 | ED Physician Documentation ---
PD HPI BACK PAIN - Stated complaint Stated Complaint: LOW BACK PX - Chief complaint Chief Complaint: Back Pain - History obtained from History obtained from: Patient - History of Present Illness Timing - onset: How many days ago (4) Timing - duration: Days (4) Timing - details: Gradual onset, Still present (worse today) Location: Mid, Lower, Right Quality: Pain, Sharp, Aching Associated symptoms: No: Fever, Weakness, Numbness Improves with: No: Rest Worsened by: Movement. No: Twisting, Palpation Contributing factors: No: Twisting, Trauma Similar symptoms before: Diagnosis (has had similar with kidney stones and UTIs in the past. Prior CCY.) Recently seen: Not recently seen Review of Systems Constitutional: reports: Fever (subjective fever 4 days ago but not since.). denies: Chills Nose: denies: Rhinorrhea / runny nose, Congestion Throat: denies: Sore throat Respiratory: denies: Cough GI: reports: Abdominal Pain (some radiation of pain to right lower abd.), Nausea. 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 : Kidney stones HEENT: None Psych: None Musculoskeletal: None Derm: None - Past Surgical History Past Surgical History: Yes General: Cholecystectomy /BUSINESS OFFICE COORDINATOR: Hysterectomy - Present Medications Home Medications: Ambulatory Orders Medication Instructions Recorded Confirmed Duloxetine HCl [Cymbalta] 1 cap DAILY 11/02/20 11/02/20 Ondansetron Odt [Zofran] 4 mg TL Q6H PRN #10 tablet 11/02/20 Oxycodone HCl/Acetaminophen 1 each PO Q6H PRN #14 tablet 11/02/20 [Percocet 5-325 mg Tablet] - Allergies Allergies/Adverse Reactions: Allergies Allergy/AdvReac Type Severity Reaction Status Date / Time codeine AdvReac Hives Verified 03/26/20 16:58 hydrocodone AdvReac Itching Verified 03/18/20 19:21 tamsulosin AdvReac Dizziness Verified 03/26/20 16:59 - Social History Does the pt smoke?: No Smoking Status: Never smoker Does the pt drink ETOH?: No Does the pt have substance abuse?: No - Immunizations Immunizations are current?: Yes - POLST Patient has POLST: No PD ED PE NORMAL - Vitals Vital signs reviewed: Yes - General General: Alert and oriented X 3, Well developed/nourished, Other (appears in discomfort due to right back/flank. ) - Neck Neck: Supple, no meningeal sign, No adenopathy - Cardiac Cardiac: RRR, No murmur - Respiratory Respiratory: Clear bilaterally - Abdomen Abdomen: Normal bowel sounds, Soft, Non distended, No organomegaly, Other (mild tender right lateral abd without guarding nor percussion tenderness. ) - Female Female : Deferred - Rectal Rectal: Deferred - Back Back: No spinal TTP, Other (tender right flank area to percussion. Left not t haider. ) - Derm Derm: Normal color, Warm and dry, No rash - Extremities Extremities: No edema, No calf tenderness / cord - Neuro Neuro: Alert and oriented X 3, No motor deficit, No sensory deficit, Normal speech Results - Vitals Vitals: Vital Signs - 24 hr 11/02/20 11/02/20 11/02/20 19:11 19:55 21:06 Temperature 36.2 C L Heart Rate 79 92 88 Respiratory 16 18 18 Rate Blood Pressure 153/80 H 152/99 H 122/65 O2 Saturation 100 97 95 Oxygen O2 Source Room air - Labs Labs: Laboratory Tests 11/02/20 11/02/20 11/02/20 19:24 19:24 19:29 WBC 8.7 RBC 4.50 Hgb 13.7 Hct 40.9 MCV 90.9 MCH 30.4 MCHC 33.5 RDW 12.0 Plt Count 265 MPV 8.9 Neut # (Auto) 5.1 Lymph # (Auto) 2.7 [place] # (Auto) 0.7 Eos # (Auto) 0.1 Baso # (Auto) 0.0 Absolute Nucleated RBC 0.00 Nucleated RBC % 0.0 Sodium Potassium Chloride Carbon Dioxide Anion Gap BUN Creatinine Estimated GFR (MDRD) Glucose Calcium Total Bilirubin AST ALT Alkaline Phosphatase Total Protein Albumin Globulin Albumin/Globulin Ratio Lipase Urine Color YELLOW Urine Clarity CLEAR Urine pH 5.5 Ur Specific [place] >=1.030 H Urine Protein NEGATIVE Urine Glucose (UA) NEGATIVE Urine Ketones NEGATIVE Urine Occult Blood TRACE-LYSE Urine Nitrite NEGATIVE Urine Bilirubin NEGATIVE Urine Urobilinogen 0.2 (NORMAL) Ur Leukocyte Esterase NEGATIVE Ur Microscopic Review NOT INDICATED Urine Culture Comments NOT INDICATED Urine HCG, Qual NEGATIVE 11/02/20 19:29 WBC RBC Hgb Hct MCV MCH MCHC RDW Plt Count MPV Neut # (Auto) Lymph # (Auto) [place] # (Auto) Eos # (Auto) Baso # (Auto) Absolute Nucleated RBC Nucleated RBC % Sodium 139 Potassium 3.6 Chloride 103 Carbon Dioxide 28 Anion Gap 8.0 BUN 15 Creatinine 0.8 Estimated GFR (MDRD) 78 L Glucose 103 H Calcium 9.3 Total Bilirubin 0.4 AST 14 ALT 13 Alkaline Phosphatase 79 Total Protein 7.6 Albumin 4.2 Globulin 3.4 Albumin/Globulin Ratio 1.2 Lipase 27 Urine Color Urine Clarity Urine pH Ur Specific [place] Urine Protein Urine Glucose (UA) Urine Ketones Urine Occult Blood Urine Nitrite Urine Bilirubin Urine Urobilinogen Ur Leukocyte Esterase Ur Microscopic Review Urine Culture Comments Urine HCG, Qual - Rads (name of study) KUB Ct Radiology: Prelim report reviewed (small 3 mm nonobstructing stone right kidney. No hydronephrosis. No other acute process. ), See rad report PD MEDICAL DECISION MAKING - ED course Complexity details: reviewed old records, reviewed results (small 3 mm nonobstructing stone right kidney. This does not seem like it should be causing pain. Presume more muscular pain without other findings on testing. ), considered differential, d/w patient Departure - Departure Disposition: 01 Home, Self Care Clinical Impression: Acute right flank pain Condition: Stable Record reviewed to determine appropriate education?: Yes Instructions: ED Flank Pain Uncertain Cause Follow-Up: Roderick Aden MD [Physician No Access] - Prescriptions: Oxycodone HCl/Acetaminophen [Percocet 5-325 mg Tablet] 1 each PO Q6H PRN #14 tablet PRN Reason: pain Ondansetron Odt [Zofran] 4 mg TL Q6H PRN #10 tablet PRN Reason: Nausea / Vomiting Comments: You have a small 3 mm stone in the right kidney but not in a location to be causing obstruction of urine flow. It is not near or in the ureter. Your urine test does not show any infection. No other cause for the pain seen on the CT. It may be muscular or other cause. You can call your Urologist and ask their opinion if this might be causing the pain but typically nonobstructing stone do not. That said, you are still hurting, so take some Ibuprofen 400-600 mg three times daily. Add Tylenol every 4 hours if needed for pain or Percocet as needed for worse pain. I am writing a prescription for short term pain medication. Discharge Date/Time: 11/02/20 21:06
[2020-11-02] MEDS ORDERED: ONDANSETRON 4 MG/2 ML VIAL IVP STA (19:27)
[2020-11-02] MEDS ORDERED: HYDROmorphone 1 MG/ML CARPUJECT IVP STA (19:27)
[2020-11-02] MEDS ORDERED: SODIUM CHLORIDE 0.9% 1,000 ML IV STA (19:27)
[2020-11-02] MEDS ORDERED: KETOROLAC 15 MG/ML VIAL IVP STA (19:27)
[2020-11-02 19:31] LABS: BASOPHILS % (AUTO) 0.5 %; EOSINOPHILS # (AUTO) 0.1 10^3/uL (0.0-0.7); EOSINOPHILS % (AUTO) 1.4 %; HCT - HEMATOCRIT 40.9 % (37.0-47.0); HGB - HEMOGLOBIN 13.7 g/dL (12.0-16.0); LYMPHOCYTES # (AUTO) 2.7 10^3/uL (1.5-3.5); LYMPHOCYTES % (AUTO) 31.1 %; MEAN CORPUSCULAR HEMOGLOBIN 30.4 pg (27.0-31.0); MEAN CORPUSCULAR HGB CONC 33.5 g/dL (32.0-36.0); MEAN CORPUSCULAR VOLUME 90.9 fL (81.0-99.0); MEAN PLATELET VOLUME 8.9 fL (7.9-10.8); MONOCYTES # (AUTO) 0.7 10^3/uL (0.0-1.0); MONOCYTES % (AUTO) 8.3 %; NEUTROPHILS # (AUTO) 5.1 10^3/uL (1.5-6.6); NEUTROPHILS % (AUTO) 58.5 %; PLT - PLATELET COUNT 265 10^3/uL (130-450); WHITE BLOOD COUNT 8.7 x10^3/uL (4.8-10.8)
[2020-11-02 19:33] LABS: BILIRUBIN,URINE NEGATIVE (NEGATIVE); GLUCOSE, URINE (UA) NEGATIVE (NEGATIVE); KETONES,URINE (UA) NEGATIVE (NEGATIVE); LEUKOCYTE ESTERASE, URINE NEGATIVE (NEGATIVE); NITRITE,URINE NEGATIVE (NEGATIVE); OCCULT BLOOD,URINE TRACE-LYSE (NEGATIVE); PH,URINE 5.5 PH (5.0-7.5); PROTEIN,URINE NEGATIVE (NEGATIVE); UROBILINOGEN,URINE 0.2 (NORMAL) E.U./dL (NORMAL)
[2020-11-02 19:35] LABS: CLARITY,URINE CLEAR (CLEAR); HCG UR QUAL NEGATIVE
[2020-11-02 19:48] LABS: ALBUMIN 4.2 g/dL (3.2-5.5); ALBUMIN/GLOBULIN RATIO 1.2 (1.0-2.2); BILIRUBIN,TOTAL 0.4 mg/dL (0.2-1.0); CALCIUM 9.3 mg/dL (8.5-10.3); CREATININE 0.8 mg/dL (0.4-1.0); POTASSIUM 3.6 mmol/L (3.5-5.0); TOTAL PROTEIN 7.6 g/dL (6.7-8.2)
--- NOTE | 2020-11-02 20:05 | CT Report ---
PROCEDURE: Abdomen/Pelvis WO INDICATIONS: right flank pain; h/o stones TECHNIQUE: Noncontrast 5 mm thick sections acquired from the diaphragms to the symphysis. 5 mm coronal and sagi ttal reformats were then performed. For radiation dose reduction, the following was used: automated exposure control, adjustment of mA and/or kV according to patient size. COMPARISON: 03/23/2019. FINDINGS: Image quality: Excellent. ABDOMEN: Lung bases: Lung bases are clear. Heart size is normal. Solid organs: Liver and spleen are normal in size. Gallbladder is surgically absent. Pancreas is n ormal in contours. No adrenal nodules. Kidneys are normal in size without hydronephrosis. 3 mm nonob structing stone in lower pole of right kidney is seen. No left-sided nephrolithiasis. Bilateral urete rs are within normal limits. Peritoneum and bowel: Unenhanced bowel loops demonstrate normal wall thickness and caliber. No free fluid or air. Mild colonic diverticulosis is seen without CT evidence of acute diverticulitis. Nodes and vessels: No retroperitoneal or mesenteric adenopathy by size criteria. Aorta and inferior vena cava are normal in caliber. Miscellaneous: Small umbilical hernia is seen containing fat only. PELVIS: Genitourinary: Bladder wall thickness is normal. Miscellaneous: No inguinal hernias or adenopathy. Bones: No suspicious bony lesions. No vertebral body compression fractures. IMPRESSION: 1. 3 mm nonobstructing in lower pole right kidney. No obstructing renal stone or hydronephrosis. Norm al-appearing bilateral ureters and urinary bladder. 2. No bowel obstruction or abnormal bowel wall thickening. No free fluid of free air. Mild colonic di verticulosis without CT evidence of acute diverticulitis. Reviewed by: Brandin Whitfield MD on 11/02/2020 8:04 PM PDT Approved by: Brandin Whitfield MD on 11/02/2020 8:04 PM PDT Station ID: [id number]
[2020-11-02] MEDS ORDERED: oxyCODONE/ACET 5/325 Prepack 4 PO STA (20:32)
[2020-11-02 21:07] VITALS: BP 122/65
== END 2020-11-02 21:06 | disposition home or self-care (01) ==
LOC: ED 18:48
DX: N20.0 Calculus of kidney (principal); R10.31 Right lower quadrant pain
CPT/HCPCS: 36415; 74176; 80053; 81003; 81025; 83690; 85025; 96374; 96375; 99284; J1170; 81001; 87086

== ENCOUNTER 2021-04-11 12:56 | Emergency (ER) | payer OTHER ==
[2021-04-11 13:21] LABS: BASOPHILS % (AUTO) 0.3 %; EOSINOPHILS # (AUTO) 0.1 10^3/uL (0.0-0.7); EOSINOPHILS % (AUTO) 0.9 %; HCT - HEMATOCRIT 42.3 % (37.0-47.0); HGB - HEMOGLOBIN 14.1 g/dL (12.0-16.0); LYMPHOCYTES % (AUTO) 22.7 %; MEAN CORPUSCULAR HEMOGLOBIN 29.7 pg (27.0-31.0); MEAN CORPUSCULAR HGB CONC 33.3 g/dL (32.0-36.0); MEAN CORPUSCULAR VOLUME 89.2 fL (81.0-99.0); MEAN PLATELET VOLUME 9.1 fL (7.9-10.8); MONOCYTES # (AUTO) 0.6 10^3/uL (0.0-1.0); MONOCYTES % (AUTO) 7.4 %; NEUTROPHILS # (AUTO) 5.9 10^3/uL (1.5-6.6); NEUTROPHILS % (AUTO) 68.4 %; PLT - PLATELET COUNT 258 10^3/uL (130-450); RED BLOOD COUNT 4.74 10^6/uL (4.20-5.40); RED CELL DISTRIBUTION WIDTH 11.9 % (12.0-15.0); WHITE BLOOD COUNT 8.7 x10^3/uL (4.8-10.8)
[2021-04-11 13:29] LABS: HCG UR QUAL NEGATIVE
[2021-04-11 13:30] LABS: BILIRUBIN,URINE NEGATIVE (NEGATIVE); GLUCOSE, URINE (UA) NEGATIVE (NEGATIVE); KETONES,URINE (UA) NEGATIVE (NEGATIVE); LEUKOCYTE ESTERASE, URINE NEGATIVE (NEGATIVE); NITRITE,URINE NEGATIVE (NEGATIVE); OCCULT BLOOD,URINE NEGATIVE (NEGATIVE); PH,URINE 7.5 PH (5.0-7.5); PROTEIN,URINE NEGATIVE (NEGATIVE); UROBILINOGEN,URINE 0.2 (NORMAL) E.U./dL (NORMAL)
[2021-04-11 13:35] LABS: CLARITY,URINE CLEAR (CLEAR)
[2021-04-11 13:44] LABS: ALBUMIN/GLOBULIN RATIO 1.2 (1.0-2.2); BILIRUBIN,TOTAL 0.4 mg/dL (0.2-1.0); CALCIUM 9.4 mg/dL (8.5-10.3); CREATININE 0.8 mg/dL (0.4-1.0); POTASSIUM 3.9 mmol/L (3.5-5.0); TOTAL PROTEIN 7.4 g/dL (6.7-8.2)
[2021-04-11] MEDS ORDERED: HYDROmorphone 1 MG/ML CARPUJECT IM STA (15:13)
--- NOTE | 2021-04-11 15:17 | ED Physician Documentation ---
PD HPI ABD PAIN - Stated complaint Stated Complaint: FLANK PX R SIDE - Chief complaint Chief Complaint: Abd Pain - History obtained from History obtained from: Patient - History of Present Illness Timing - onset: How many days ago (2) Timing - duration: Days (2) Timing - details: Gradual onset Pain level max: 7 Pain level now: 6 Quality: Aching, Pain Location: Other (R flank) Improved by: No: Eating, Laying still, Vomiting, BM, Position, Meds Worsened by: No: Eating, Moving, Breathing, Position, Palpation Associated symptoms: Nausea. No: Fever, Vomiting, Hematemesis, Diarrhea, Constipation, Melena, Hematochezia, Dysuria, Hematuria - Additional information Additional information: 45-year-old female with a longstanding history of renal stones presents to the emergency department right flank pain for the past 2 to 3 days. Nothing makes it better or worse. Feels similar to prior kidney stones. Has had lithotripsy about every 6 months to remove stones. No fevers. No chills. Took Motrin without relief. Also took tramadol without relief. 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 : Kidney stones HEENT: None Psych: None Musculoskeletal: None Derm: None - Past Surgical History Past Surgical History: Yes General: Cholecystectomy /HEAD BONE GRINDER: Hysterectomy - Present Medications Home Medications: Ambulatory Orders Medication Instructions Recorded Confirmed Duloxetine HCl [Cymbalta] 1 cap DAILY 11/02/20 11/02/20 Ondansetron Odt [Zofran] 4 mg TL Q6H PRN #10 tablet 11/02/20 Oxycodone HCl/Acetaminophen 1 each PO Q6H PRN #14 tablet 11/02/20 [Percocet 5-325 mg Tablet] Oxycodone HCl/Acetaminophen 1 - 2 each PO Q6H PRN #10 tablet 04/11/21 [Percocet 5-325 mg Tablet] - Allergies Allergies/Adverse Reactions: Allergies Allergy/AdvReac Type Severity Reaction Status Date / Time codeine AdvReac Hives Verified 04/11/21 13:02 hydrocodone AdvReac Itching Verified 04/11/21 13:02 tamsulosin AdvReac Dizziness Verified 04/11/21 13:02 - Social History Does the pt smoke?: No Smoking Status: Never smoker Does the pt drink ETOH?: No Does the pt have substance abuse?: No - Immunizations Immunizations are current?: Yes - POLST Patient has POLST: No PD ED PE NORMAL - Vitals Vital signs reviewed: Yes - General General: Alert and oriented X 3, No acute distress - HEENT HEENT: PERRL, Moist mucous membranes - Neck Neck: Supple, no meningeal sign - Cardiac Cardiac: RRR - Respiratory Respiratory: No respiratory distress, Clear bilaterally - Abdomen Abdomen: Soft, Non tender, Non distended - Back Back: No CVA TTP - Derm Derm: Warm and dry - Neuro Neuro: Alert and oriented X 3 - Psych Psych: Normal mood, Normal affect Results - Vitals Vitals: Vital Signs - 24 hr 04/11/21 04/11/21 12:59 15:57 Temperature 36.7 C Heart Rate 84 88 Respiratory 16 18 Rate Blood Pressure 146/99 H 148/106 H O2 Saturation 98 99 Oxygen O2 Source Room air - Labs Labs: Laboratory Tests 04/11/21 04/11/21 04/11/21 13:00 13:17 13:17 WBC 8.7 RBC 4.74 Hgb 14.1 Hct 42.3 MCV 89.2 MCH 29.7 MCHC 33.3 RDW 11.9 L Plt Count 258 MPV 9.1 Neut # (Auto) 5.9 Lymph # (Auto) 2.0 [place] # (Auto) 0.6 Eos # (Auto) 0.1 Baso # (Auto) 0.0 Absolute Nucleated RBC 0.00 Nucleated RBC % 0.0 Sodium 137 Potassium 3.9 Chloride 102 Carbon Dioxide 26 Anion Gap 9.0 BUN 15 Creatinine 0.8 Estimated GFR (MDRD) 78 L Glucose 112 H Calcium 9.4 Total Bilirubin 0.4 AST 21 ALT 23 Alkaline Phosphatase 71 Total Protein 7.4 Albumin 4.0 Globulin 3.4 Albumin/Globulin Ratio 1.2 Lipase 25 Urine Color YELLOW Urine Clarity CLEAR Urine pH 7.5 Ur Specific [place] 1.020 Urine Protein NEGATIVE Urine Glucose (UA) NEGATIVE Urine Ketones NEGATIVE Urine Occult Blood NEGATIVE Urine Nitrite NEGATIVE Urine Bilirubin NEGATIVE Urine Urobilinogen 0.2 (NORMAL) Ur Leukocyte Esterase NEGATIVE Ur Microscopic Review NOT INDICATED Urine Culture Comments NOT INDICATED Urine HCG, Qual 04/11/21 13:17 WBC RBC Hgb Hct MCV MCH MCHC RDW Plt Count MPV Neut # (Auto) Lymph # (Auto) [place] # (Auto) Eos # (Auto) Baso # (Auto) Absolute Nucleated RBC Nucleated RBC % Sodium Potassium Chloride Carbon Dioxide Anion Gap BUN Creatinine Estimated GFR (MDRD) Glucose Calcium Total Bilirubin AST ALT Alkaline Phosphatase Total Protein Albumin Globulin Albumin/Globulin Ratio Lipase Urine Color Urine Clarity Urine pH Ur Specific [place] Urine Protein Urine Glucose (UA) Urine Ketones Urine Occult Blood Urine Nitrite Urine Bilirubin Urine Urobilinogen Ur Leukocyte Esterase Ur Microscopic Review Urine Culture Comments Urine HCG, Qual NEGATIVE - Rads (name of study) CT abd/pelvis Radiology: Final report received, EMP read contemporaneously, See rad report PD MEDICAL DECISION MAKING - ED course Complexity details: reviewed results, re-evaluated patient, considered dif ferential, d/w patient ED course: Patient is a 45-year-old female presents with right flank pain similar to prior kidney stones. No acute findings on laboratory testing. No acute findings on CT to explain her symptoms. Pain well controlled. Possible that she recently passed a kidney stone. Will trial on a small amount of pain medication for home and have her follow-up with her doctor for further care. Patient counseled regarding signs and symptoms for which I believe and urgent re-evaluation would be necessary. Patient with good understanding of and agreement to plan and is comfortable going home at this time This document was made in part using voice recognition software. While efforts are made to proofread this document, sound alike and grammatical errors may occur. IMPRESSION: 1. Stable appearance of 3 mm nonobstructing punctate right nephrolith. Otherwise, no evidence for obstructive uropathy. No acute abnormalities identifi ed in the abdomen or pelvis. 2. Scant colonic diverticulosis without acute diverticulitis. 3. Status post cholecystectomy. Departure - Departure Disposition: Home, Self Care Clinical Impression: Flank pain Condition: Good Instructions: ED Abdominal Pain Female Non-Specific Abdominal Pain Follow-Up: Pema De La Cruz PA-C [Primary Care Provider] - Within 1 week Prescriptions: Oxycodone HCl/Acetaminophen [Percocet 5-325 mg Tablet] 1 - 2 each PO Q6H PRN #10 tablet PRN Reason: pain Comments: Your prescription was sent to [facility] in [place]. Please follow-up with your doctor for further care. Return if you worsen. The cause of your symptoms is unclear today, but you may have passed a kidney stone. I am prescribing a short course of narcotic pain medication for you. These are potentially dangerous and addictive medications that should be used carefully. These medications may constipate you. Take an soju-zzs-vrmwhqu stool softener (docusate) twice daily with plenty of water while taking these medications. If you go 24 hours without a bowel movement, take [id number] miralax, per package instructions. Do not drink or drive while taking these medications. If you received narcotic or sedating medications while in the emergency department, do not drive for 24 hours. Store this medication in a safe, secure place and out of reach of children. It is a violation of federal law to give or sell this medication to another person or to use in a manner other than prescribed. The ED will not refill narcotic prescriptions, including prescriptions lost or stolen. To dispose of unwanted medications: 1. [facility] [address] in [place] has a medication drop box. They accept prescription medications (in pill form) Saturday through Saturday 9:00 a.m. to 5:00 p.m. 2. The [facility] [employer] accepts prescription medications (in pill form only) for disposal year round. Call for more information. 3. Contact the [facility] for the next [facility] sponsored prescription drug collection event. , [phone], or [phone]; Discharge Date/Time: 04/11/21 16:37
[2021-04-11] MEDS ORDERED: ONDANSETRON ODT 4 MG TABLET TL STA (15:39)
[2021-04-11 15:58] VITALS: BP 148/106
--- NOTE | 2021-04-11 16:03 | CT Report ---
PROCEDURE: Abdomen/Pelvis WO INDICATIONS: R flank pain, h/o renal stones TECHNIQUE: Noncontrast 5 mm thick sections acquired from the diaphragms to the symphysis. 5 mm coronal and sagi ttal reformats were then performed. For radiation dose reduction, the following was used: automated exposure control, adjustment of mA and/or kV according to patient size. COMPARISON: 11/02/2020 FINDINGS: Image quality: Excellent. ABDOMEN: Lung bases: Lung bases are clear. Heart size is normal. Solid organs: Liver and spleen are normal in size. Gallbladder is surgically absent. Pancreas is n ormal in contours. No adrenal nodules. Kidneys are normal in size, without hydronephrosis or perine phric stranding. Redemonstration of punctate 3 mm nonobstructing right nephrolith. Bilateral ureters are normal in course and caliber. Peritoneum and bowel: Unenhanced bowel loops demonstrate normal wall thickness and caliber. No free fluid or air. Scant colonic diverticulosis without acute diverticulitis. Nodes and vessels: No retroperitoneal or mesenteric adenopathy by size criteria. Aorta and inferior vena cava are normal in caliber. Miscellaneous: No ventral hernias. PELVIS: Genitourinary: Bladder wall thickness is normal. No urinary bladder stone. Miscellaneous: No inguinal hernias or adenopathy. Bones: No suspicious bony lesions. No acute vertebral body compression fractures. IMPRESSION: 1. Stable appearance of 3 mm nonobstructing punctate right nephrolith. Otherwise, no evidence for obs tructive uropathy. No acute abnormalities identified in the abdomen or pelvis. 2. Scant colonic diverticulosis without acute diverticulitis. 3. Status post cholecystectomy. Reviewed by: Jorge Funze MD on 04/11/2021 4:02 PM PST Approved by: Jorge Funez MD on 04/11/2021 4:02 PM PST Station ID: [id number]
== END 2021-04-11 16:37 | disposition home or self-care (01) ==
LOC: ED 12:56
DX: R10.9 Unspecified abdominal pain (principal)
CPT/HCPCS: 36415; 74176; 80053; 81003; 81025; 83690; 85025; 96372; 99283; 99284; J1170; Q0162; 81001; 87086

== ENCOUNTER 2021-12-13 14:11 | Emergency (ER) | payer OTHER ==
[2021-12-13 14:48] LABS: BASOPHILS % (AUTO) 0.4 %; EOSINOPHILS # (AUTO) 0.1 10^3/uL (0.0-0.7); EOSINOPHILS % (AUTO) 0.9 %; HCT - HEMATOCRIT 42.7 % (37.0-47.0); HGB - HEMOGLOBIN 14.6 g/dL (12.0-16.0); LYMPHOCYTES # (AUTO) 1.9 10^3/uL (1.5-3.5); LYMPHOCYTES % (AUTO) 28.2 %; MEAN CORPUSCULAR HEMOGLOBIN 30.5 pg (27.0-31.0); MEAN CORPUSCULAR HGB CONC 34.2 g/dL (32.0-36.0); MEAN CORPUSCULAR VOLUME 89.3 fL (81.0-99.0); MEAN PLATELET VOLUME 9.4 fL (7.9-10.8); MONOCYTES # (AUTO) 0.5 10^3/uL (0.0-1.0); MONOCYTES % (AUTO) 7.5 %; NEUTROPHILS # (AUTO) 4.3 10^3/uL (1.5-6.6); NEUTROPHILS % (AUTO) 62.7 %; PLT - PLATELET COUNT 273 10^3/uL (130-450); RED BLOOD COUNT 4.78 10^6/uL (4.20-5.40); RED CELL DISTRIBUTION WIDTH 11.9 % (12.0-15.0); WHITE BLOOD COUNT 6.8 x10^3/uL (4.8-10.8)
[2021-12-13 14:48] LABS: BILIRUBIN,URINE NEGATIVE (NEGATIVE); GLUCOSE, URINE (UA) NEGATIVE (NEGATIVE); KETONES,URINE (UA) NEGATIVE (NEGATIVE); LEUKOCYTE ESTERASE, URINE NEGATIVE (NEGATIVE); NITRITE,URINE NEGATIVE (NEGATIVE); OCCULT BLOOD,URINE NEGATIVE (NEGATIVE); PROTEIN,URINE NEGATIVE (NEGATIVE); UROBILINOGEN,URINE 0.2 (NORMAL) E.U./dL (NORMAL)
[2021-12-13 14:51] LABS: CLARITY,URINE CLEAR (CLEAR)
[2021-12-13 15:01] LABS: ALBUMIN 4.4 g/dL (3.2-5.5); ALBUMIN/GLOBULIN RATIO 1.3 (1.0-2.2); BILIRUBIN,TOTAL 0.4 mg/dL (0.2-1.0); CALCIUM 9.6 mg/dL (8.5-10.3); CREATININE 0.9 mg/dL (0.4-1.0); POTASSIUM 3.7 mmol/L (3.5-5.0); TOTAL PROTEIN 7.7 g/dL (6.7-8.2)
--- NOTE | 2021-12-13 15:28 | ED Physician Documentation ---
PD HPI ABD PAIN - Stated complaint Stated Complaint: ABD PX - Chief complaint Chief Complaint: Abd Pain - History obtained from History obtained from: Patient - History of Present Illness Timing - onset: Yesterday Timing - duration: Minutes Timing - details: Abrupt onset (onset of LLQ pain yesterday that lasted just few minutes but was very severe. Today having some flank pain that is aching. No fever. No pain on the right.), Now resolved Quality: Cramping, Aching (today), Sharp (yesterday) Location: LLQ Radiation: Left flank Improved by: No: Eating, Laying still Worsened by: No: Eating, Moving, Palpation Associated symptoms: Nausea, Diarrhea (chronic mild due to IBS.). No: Fever, Vomiting, Constipation Similar symptoms before: Diagnosis (previously with kidney stones, with last one on the right. has had diverticula. 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 : Kidney stones HEENT: None Psych: None Musculoskeletal: None Derm: None - Past Surgical History Past Surgical History: Yes General: Cholecystectomy /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 DEVELOPER: Hysterectomy - Present Medications Home Medications: Ambulatory Orders Medication Instructions Recorded Confirmed Ondansetron Odt [Zofran] 4 mg TL Q6H PRN #10 tablet 11/02/20 12/13/21 Gabapentin [Neurontin] 100 mg PO HS 12/13/21 12/13/21 HYDROcod/ACETAM 5/325 [[place] 5/325] 1 ea PO Q6H PRN #14 tablet 12/13/21 Hyoscyamine Sulfate 1 - 2 tab SL Q6HR PRN 12/13/21 12/13/21 LORazepam [Ativan] 0.5 mg PO DAILY PRN 12/13/21 12/13/21 Losartan Potassium 25 mg PO DAILY 12/13/21 12/13/21 - Allergies Allergies/Adverse Reactions: Allergies Allergy/AdvReac Type Severity Reaction Status Date / Time codeine AdvReac Hives Verified 12/13/21 14:22 hydrocodone AdvReac Itching Verified 12/13/21 14:22 tamsulosin AdvReac Dizziness Verified 12/13/21 14:22 - Social History Does the pt smoke?: No Smoking Status: Never smoker Does the pt drink ETOH?: No Does the pt have substance abuse?: No - Immunizations Immunizations are current?: Yes - POLST Patient has POLST: No PD ED PE NORMAL - Vitals Vital signs reviewed: Yes - General General: Alert and oriented X 3, No acute distress, Well developed/nourished - Neck Neck: Supple, no meningeal sign, No adenopathy - Cardiac Cardiac: RRR, No murmur - Respiratory Respiratory: Clear bilaterally - Abdomen Abdomen: Normal bowel sounds, Soft, Non distended, No organomegaly, Other (mild left sided lower tender without guarding, percussion nor rebound tenderness. ) - Derm Derm: Normal color, Warm and dry - Neuro Neuro: Alert and oriented X 3, No motor deficit, Normal speech Results - Vitals Vitals: Vital Signs - 24 hr 12/13/21 12/13/21 12/13/21 14:22 14:27 16:27 Temperature 36.5 C Heart Rate 78 69 74 Respiratory 16 19 17 Rate Blood Pressure 143/85 H 131/81 H 121/80 O2 Saturation 98 98 100 Oxygen O2 Source Room air - Labs Labs: Laboratory Tests 12/13/21 12/13/21 12/13/21 14:35 14:37 14:37 WBC 6.8 RBC 4.78 Hgb 14.6 Hct 42.7 MCV 89.3 MCH 30.5 MCHC 34.2 RDW 11.9 L Plt Count 273 MPV 9.4 Neut # (Auto) 4.3 Lymph # (Auto) 1.9 [place] # (Auto) 0.5 Eos # (Auto) 0.1 Baso # (Auto) 0.0 Absolute Nucleated RBC 0.00 Nucleated RBC % 0.0 Sodium 138 Potassium 3.7 Chloride 104 Carbon Dioxide 26 Anion Gap 8.0 BUN 15 Creatinine 0.9 Estimated GFR (MDRD) 68 L Glucose 101 H Calcium 9.6 Total Bilirubin 0.4 AST 18 ALT 13 Alkaline Phosphatase 68 Total Protein 7.7 Albumin 4.4 Globulin 3.3 Albumin/Globulin Ratio 1.3 Lipase 30 Urine Color YELLOW Urine Clarity CLEAR Urine pH 6.0 Ur Specific [place] 1.020 Urine Protein NEGATIVE Urine Glucose (UA) NEGATIVE Urine Ketones NEGATIVE Urine Occult Blood NEGATIVE Urine Nitrite NEGATIVE Urine Bilirubin NEGATIVE Urine Urobilinogen 0.2 (NORMAL) Ur Leukocyte Esterase NEGATIVE Ur Microscopic Review NOT INDICATED Urine Culture Comments NOT INDICATED - Rads (name of study) abd/pelvic CT Radiology: Prelim report reviewed (no acute process. Colon wall normal. No kidney stones (prior right one is now gone).), See rad report PD MEDICAL DECISION MAKING - ED course Complexity details: reviewed results, considered differential (not sure the cause of her recent pain. Consider having passed a small stone yesterday. Could hav esome IBS flare up. No identified cause per se. ), d/w patient Departure - Departure Disposition: 01 Home, Self Care Clinical Impression: Left sided abdominal pain Condition: Stable Record reviewed to determine appropriate education?: Yes Instructions: ED Abdominal Pain Female Non-Specific Abdominal Pain Follow-Up: Pema De La Cruz PA-C [Primary Care Provider] - Prescriptions: HYDROcod/ACETAM 5/325 [[place] 5/325] 1 ea PO Q6H PRN #14 tablet PRN Reason: Pain Comments: Your CT scan did not show any obvious cause for the pain. Your urine test appears normal as well. At this point I presume some irritable bowel and p ossible cramping. Continue with your hyoscyamine as needed. I would suggest some ibuprofen or naproxen 2 tablets 2 or 3 times daily for the next several days. To that add Tylenol or hydrocodone if needed for pains. Recheck if not improved well over the next few days or if new symptoms develop. I sent your prescription to [facility] pharmacy. I am prescribing a short course of narcotic pain medication for you. These are potentially dangerous and addictive medications that should be used carefully. These medications may constipate you. Take an iues-jsr-jthmuch stool softener such as docusate twice daily with plenty of water while taking these medications. If you go 24 hours without a bowel movement, take aspo-fyi-xvjulpg MiraLAX, per package instructions. Do not drink or drive while taking these medications. If you received narcotic or sedating medications while in the emergency department do not drive for 24 hours. Store this medication in a safe, secure place and out of reach of children. It is a violation of federal law to give or sell this medication to another person or to use in a manner other than prescribed. The ED will not refill narcotic prescriptions, including prescriptions lost or stolen. You can dispose of unwanted medications at the [facility]'s office or at several pharmacies such as [place]. Discharge Date/Time: 12/13/21 17:12
--- NOTE | 2021-12-13 16:35 | CT Report ---
PROCEDURE: Abdomen/Pelvis WO INDICATIONS: left abd/back pain since yesterday TECHNIQUE: Noncontrast 5 mm thick sections acquired from the diaphragms to the symphysis. 5 mm coronal and sagi ttal reformats were then performed. For radiation dose reduction, the following was used: automated exposure control, adjustment of mA and/or kV according to patient size. COMPARISON: CT abdomen pelvis 04/11/2021. FINDINGS: Image quality: Excellent. ABDOMEN: Lung bases: Lung bases are clear. Heart size is normal. Solid organs: Liver and spleen are normal in size. Gallbladder has been removed. Pancreas is giovanny l in contours. No adrenal nodules. Kidneys are normal in size, without hydronephrosis or nephrolith iasis. Previous right renal calculus is no longer visualized. Peritoneum and bowel: Unenhanced bowel loops demonstrate normal wall thickness and caliber. No free fluid or air. Nodes and vessels: No retroperitoneal or mesenteric adenopathy by size criteria. Aorta and inferior vena cava are normal in caliber. Miscellaneous: No ventral hernias. PELVIS: Genitourinary: There is slight appearance of pericystic stranding. Miscellaneous: No inguinal hernias or adenopathy. Bones: No suspicious bony lesions. No vertebral body compression fractures. IMPRESSION: No renal, ureteral or bladder calculi. Slight appearance of pericystic stranding which could be customer retention representative of cystitis. Reviewed by: Nina Mina MD on 12/13/2021 4:33 PM PDT Approved by: Nina Mina MD on 12/13/2021 4:33 PM PDT Station ID: [id number]
[2021-12-13 16:56] VITALS: BP 121/80
== END 2021-12-13 17:12 | disposition home or self-care (01) ==
LOC: ED 14:11
DX: R10.32 Left lower quadrant pain (principal)
CPT/HCPCS: 36415; 80053; 81001; 81003; 83690; 85025; 87086; 99284

== ENCOUNTER 2022-02-28 15:57 | Emergency (ER) | payer OTHER ==
[2022-02-28 16:24] LABS: BASOPHILS % (AUTO) 0.5 %; EOSINOPHILS # (AUTO) 0.1 10^3/uL (0.0-0.7); EOSINOPHILS % (AUTO) 1.3 %; HCT - HEMATOCRIT 44.9 % (37.0-47.0); MEAN CORPUSCULAR HEMOGLOBIN 29.8 pg (27.0-31.0); MEAN CORPUSCULAR HGB CONC 33.4 g/dL (32.0-36.0); MEAN CORPUSCULAR VOLUME 89.3 fL (81.0-99.0); MEAN PLATELET VOLUME 9.1 fL (7.9-10.8); MONOCYTES # (AUTO) 0.5 10^3/uL (0.0-1.0); MONOCYTES % (AUTO) 5.8 %; NEUTROPHILS # (AUTO) 5.1 10^3/uL (1.5-6.6); NEUTROPHILS % (AUTO) 66.1 %; PLT - PLATELET COUNT 229 10^3/uL (130-450); RED BLOOD COUNT 5.03 10^6/uL (4.20-5.40); RED CELL DISTRIBUTION WIDTH 11.8 % (12.0-15.0); WHITE BLOOD COUNT 7.7 x10^3/uL (4.8-10.8)
[2022-02-28 16:36] LABS: ALBUMIN 4.3 g/dL (3.2-5.5); ALBUMIN/GLOBULIN RATIO 1.2 (1.0-2.2); BILIRUBIN,TOTAL 0.5 mg/dL (0.2-1.0); CALCIUM 9.5 mg/dL (8.5-10.3); POTASSIUM 3.8 mmol/L (3.5-5.0); TOTAL PROTEIN 7.9 g/dL (6.7-8.2)
[2022-02-28] MEDS ORDERED: HYDROmorphone 1 MG/ML CARPUJECT IM STA ×2 (20:16→20:32)
[2022-02-28] MEDS ORDERED: HYDROmorphone 1 MG/ML CARPUJECT IVP STA (20:20)
--- NOTE | 2022-02-28 20:21 | ED Physician Documentation ---
PD HPI ABD PAIN - Stated complaint Stated Complaint: FEMALE - Chief complaint Chief Complaint: Abd Pain - History obtained from History obtained from: Patient - Additional information Additional information: 46-year-old woman with recurrent renal colic presents with 3 days of right flank pain and bladder pain. No fevers or chills. No nausea. It is different than her usual kidney stone pain. Note made that she had a CT scan here in November of this year showing no nephroliths. 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 : Kidney stones HEENT: None Psych: None Musculoskeletal: None Derm: None - Past Surgical History Past Surgical History: Yes General: Cholecystectomy /HEAD LOFT WORKER: Hysterectomy - Present Medications Home Medications: Ambulatory Orders Medication Instructions Recorded Confirmed Ondansetron Odt [Zofran] 4 mg TL Q6H PRN #10 tablet 11/02/20 12/13/21 Gabapentin [Neurontin] 100 mg PO HS 12/13/21 12/13/21 HYDROcod/ACETAM 5/325 [[place] 5/325] 1 ea PO Q6H PRN #14 tablet 12/13/21 Hyoscyamine Sulfate 1 - 2 tab SL Q6HR PRN 12/13/21 12/13/21 LORazepam [Ativan] 0.5 mg PO DAILY PRN 12/13/21 12/13/21 Losartan Potassium 25 mg PO DAILY 12/13/21 12/13/21 Budesonide [Budesonide EC] 3 tab PO DAILY #90 cap 02/28/22 Oxycodone HCl/Acetaminophen 1 - 2 each PO Q6H PRN #14 tablet 02/28/22 [Percocet 5-325 mg Tablet] - Allergies Allergies/Adverse Reactions: Allergies Allergy/AdvReac Type Severity Reaction Status Date / Time codeine AdvReac Hives Verified 02/28/22 16:10 hydrocodone AdvReac Itching Verified 02/28/22 16:10 tamsulosin AdvReac Dizziness Verified 02/28/22 16:10 - Social History Does the pt smoke?: No Smoking Status: Never smoker Does the pt drink ETOH?: No Does the pt have substance abuse?: No - Immunizations Immunizations are current?: Yes - POLST Patient has POLST: No PD ED PE NORMAL - Vitals Vital signs reviewed: Yes - General General: Alert and oriented X 3, No acute distress - Abdomen Abdomen: Normal bowel sounds, Soft, Non tender - Back Back: Other (Mild right flank tenderness) - Derm Derm: Normal color, Warm and dry - Extremities Extremities: No edema, No calf tenderness / cord - Neuro Neuro: Alert and oriented X 3, Normal speech Results - Vitals Vitals: Vital Signs - 24 hr 02/28/22 02/28/22 16:06 20:39 Temperature 36.2 C L Heart Rate 75 77 Respiratory 14 16 Rate Blood Pressure 146/100 H 136/104 H O2 Saturation 98 99 Oxygen O2 Source Room air - Labs Labs: Laboratory Tests 02/28/22 02/28/22 02/28/22 16:15 16:20 16:20 WBC 7.7 RBC 5.03 Hgb 15.0 Hct 44.9 MCV 89.3 MCH 29.8 MCHC 33.4 RDW 11.8 L Plt Count 229 MPV 9.1 Neut # (Auto) 5.1 Lymph # (Auto) 2.0 [place] # (Auto) 0.5 Eos # (Auto) 0.1 Baso # (Auto) 0.0 Absolute Nucleated RBC 0.00 Nucleated RBC % 0.0 Sodium 138 Potassium 3.8 Chloride 101 Carbon Dioxide 29 Anion Gap 8.0 BUN 12 Creatinine 1.0 Estimated GFR (MDRD) 60 L Glucose 99 Calcium 9.5 Total Bilirubin 0.5 AST 16 ALT 13 Alkaline Phosphatase 78 Total Protein 7.9 Albumin 4.3 Globulin 3.6 Albumin/Globulin Ratio 1.2 Lipase 31 Urine Color YELLOW Urine Clarity CLEAR Urine pH 6.0 Ur Specific [place] 1.010 Urine Protein NEGATIVE Urine Glucose (UA) NEGATIVE Urine Ketones NEGATIVE Urine Occult Blood NEGATIVE Urine Nitrite NEGATIVE Urine Bilirubin NEGATIVE Urine Urobilinogen 0.2 (NORMAL) Ur Leukocyte Esterase NEGATIVE Ur Microscopic Review NOT INDICATED Urine Culture Comments NOT INDICATED PD MEDICAL DECISION MAKING - ED course ED course: She presents with right flank and abdominal pain, for her it is reminiscent somewhat of prior renal colic but also with bladder pain. She is undergoing work-up for some sort of GI cause and has chronic diarrhea as well. Her blood work is unremarkable, no leukocytosis, no left shift, normal urinalysis. She is status post remote hysterectomy. Suspect this is an exacerbation of her chronic unclear GI illness and will trial budesonide pending follow-up. Given close return precautions. That said I doubt appendicitis. Departure - Departure Disposition: 01 Home, Self Care Clinical Impression: Abdominal pain Condition: Good Record reviewed to determine appropriate education?: Yes Instructions: ED Abdominal Pain Female Non-Specific Abdominal Pain Prescriptions: Budesonide [Budesonide EC] 3 tab PO DAILY #90 cap Oxycodone HCl/Acetaminophen [Percocet 5-325 mg Tablet] 1 - 2 each PO Q6H PRN #14 tablet PRN Reason: pain Comments: As discussed, your urinalysis and blood work are normal. Given the CAT scan just done a couple of months ago showing no stones in the kidneys, I find it very unlikely that your current pain is related to a kidney stone, not impossible, just very unlikely. Reasonable to follow-up with GI as you are planning for evaluation and treatment of a GI cause of your pain. In the meantime I sent the prescription to [facility] in [place], and we are trialing an oral steroid that does not get absorbed to see if it helps with your GI symptoms. I am prescribing a short course of narcotic pain medication for you. These are potentially dangerous and addictive medications that should be used carefully. These medications may constipate you. Take an sqak-lvm-ttllesq stool softener (docusate) twice daily with plenty of water while taking these medications. If you go 24 hours without a bowel movement, take mujm-qdl-ssgrgvg miralax, per package instructions. Do not drink or drive while taking these medications. If you received narcotic or sedating medications while in the emergency department, do not drive for 24 hours. Store this medication in a safe, secure place and out of reach of children. It is a violation of federal law to give or sell this medication to another person or to use in a manner other than prescribed. The ED will not refill narcotic prescriptions, including prescriptions lost or stolen. To dispose of unwanted medications: 1. [facility] at [address] in [place] has a medication drop box. They accept prescription medications (in pill form) Saturday through Saturday 9:00 a.m. to 5:00 p.m. 2. The [employer] accepts prescription medications (in pill form only) for disposal year round. Call for more information. 3. Contact the [facility] for the next [facility] sponsored prescription drug collection event. , [phone], or [phone]; Note that many narcotic pain relievers also contain Tylenol/acetaminophen. Please ensure that your total dose of acetaminophen from all sources does not exceed 3 g (3000 mg) per day.
[2022-02-28 20:29] LABS: BILIRUBIN,URINE NEGATIVE (NEGATIVE); GLUCOSE, URINE (UA) NEGATIVE (NEGATIVE); KETONES,URINE (UA) NEGATIVE (NEGATIVE); LEUKOCYTE ESTERASE, URINE NEGATIVE (NEGATIVE); NITRITE,URINE NEGATIVE (NEGATIVE); OCCULT BLOOD,URINE NEGATIVE (NEGATIVE); PROTEIN,URINE NEGATIVE (NEGATIVE); UROBILINOGEN,URINE 0.2 (NORMAL) E.U./dL (NORMAL)
[2022-02-28 20:30] LABS: CLARITY,URINE CLEAR (CLEAR)
[2022-02-28 20:40] VITALS: BP 136/104
[2022-02-28] MEDS ORDERED: oxyCODONE/ACET 5/325 Prepack 4 PO STA (20:53)
== END 2022-02-28 21:03 | disposition home or self-care (01) ==
LOC: ED 15:57
DX: R10.9 Unspecified abdominal pain (principal); R39.89 Other symptoms and signs involving the genitourinary system; K52.9 Noninfective gastroenteritis and colitis, unspecified
CPT/HCPCS: 36415; 80053; 81003; 83690; 85025; 96372; 99283; J1170; 81001; 87086

== ENCOUNTER 2022-09-01 18:06 | Emergency (ER) | payer OTHER ==
--- NOTE | 2022-09-01 20:25 | ED Physician Documentation ---
PD HPI BACK PAIN - Stated complaint Stated Complaint: BACK PX - Chief complaint Chief Complaint: Back Pain - History obtained from History obtained from: Patient - Additional information Additional information: HPI from patient. Patient states "I strained my back yesterday at work" after heavy lifting. 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 She says the pain eased up somewhat by the time she woke up this morning and thus she went back to work. However, chcf through the work shift, the pain became significantly worse, and continue to worsen as she finished up her shift. She says the pain is across her upper back with sensation of spasms, home today occasionally radiating to bilateral space lower parathoracic and upper paralumbar. The pain is distinctly worse with movement.She denies problems with bowel or bladder incontinence, denies numbness, denies weakness. 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 : Kidney stones HEENT: None Psych: None Musculoskeletal: None Derm: None - Past Surgical History Past Surgical History: Yes General: Cholecystectomy /YEAST WASHER: Hysterectomy - Present Medications Home Medications: Ambulatory Orders Medication Instructions Recorded Confirmed Ondansetron Odt [Zofran] 4 mg TL Q6H PRN #10 tablet 11/02/20 12/13/21 Gabapentin [Neurontin] 100 mg PO HS 12/13/21 12/13/21 HYDROcod/ACETAM 5/325 [[place] 5/325] 1 ea PO Q6H PRN #14 tablet 12/13/21 Hyoscyamine Sulfate 1 - 2 tab SL Q6HR PRN 12/13/21 12/13/21 LORazepam [Ativan] 0.5 mg PO DAILY PRN 12/13/21 12/13/21 Losartan Potassium 25 mg PO DAILY 12/13/21 12/13/21 Budesonide [Budesonide EC] 3 tab PO DAILY #90 cap 02/28/22 Oxycodone HCl/Acetaminophen 1 - 2 each PO Q6H PRN #14 tablet 02/28/22 [Percocet 5-325 mg Tablet] Cyclobenzaprine [Flexeril] 10 mg PO TID PRN #20 tablet 09/01/22 Oxycodone HCl/Acetaminophen 1 - 2 each PO Q6H PRN #14 tablet 09/01/22 [Percocet 5-325 mg Tablet] - Allergies Allergies/Adverse Reactions: Allergies Allergy/AdvReac Type Severity Reaction Status Date / Time codeine AdvReac Hives Verified 09/01/22 18:28 hydrocodone AdvReac Itching Verified 09/01/22 18:28 tamsulosin AdvReac Dizziness Verified 09/01/22 18:28 - Social History Does the pt smoke?: No Smoking Status: Never smoker Does the pt drink ETOH?: No Does the pt have substance abuse?: No - Immunizations Immunizations are current?: Yes - POLST Patient has POLST: No PD ED PE NORMAL - Vitals Vital signs reviewed: Yes - General General: Alert and oriented X 3, Well developed/nourished, Other (appears to be in mild-moderate painful discomfort at times during H+P) - Respiratory Respiratory: No respiratory distress, Clear bilaterally - Abdomen Abdomen: Soft, Non tender - Neuro Neuro: No motor deficit (5/5 bilateral mail officer, 5/5 bilateral dorsi/plantarflexion) PD ED PE EXPANDED - Back Back: Soft tissue tenderness (no midline tenderness; TTP bilateral parathoracic) Results - Vitals Vitals: Vital Signs - 24 hr 09/01/22 09/01/22 18:22 21:02 Temperature 36.5 C 36.5 C Heart Rate 71 70 Respiratory 16 16 Rate Blood Pressure 153/106 H 138/88 H O2 Saturation 99 100 Oxygen O2 Source Room air PD Medical Decision Making - ED course Complexity details: considered differential, d/w patient ED course: H&P are strongly suggestive of back (thoracic) muscular strain. There are no elements of the history nor physical exam that are "red flags" (no reported fever, no midline tenderness, no numbness, no weakness, no loss of bowel or bladder continence). Thus there are no tests indicated from an emergency standpoint at this time. She is given a take-home pack of Percocet as well as cyclobenzaprine and these medications are e-prescribed to her pharmacy of choice. I am prescribing a short course of short-acting opioid pain medication for this patient. 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 I have discussed that the opioids are for short term therapy only, and will not be refilled from the ED. Departure - Departure Disposition: 01 Home, Self Care Clinical Impression: Back pain Qualifiers: Back pain location: thoracic back pain Chronicity: acute Back pain laterality: bilateral Qualified Code(s): M54.6 - Pain in thoracic spine Condition: Good Instructions: ED Neck Back Pain General Follow-Up: Pema De La Cruz PA-C [Primary Care Provider] - (3-5 day) Prescriptions: Cyclobenzaprine [Flexeril] 10 mg PO TID PRN #20 tablet PRN Reason: Spasms Oxycodone HCl/Acetaminophen [Percocet 5-325 mg Tablet] 1 - 2 each PO Q6H PRN #14 tablet PRN Reason: pain Comments: Given the description of her symptoms and the lack of any specific trauma (such as falling or being struck in the back) and considering setting of the onset of the pain subsequent to performing heavy lifting, the most likely cause of your symptoms is strain of the back muscles. This is not a diagnosis that can be demonstrated on any of the tests available in the emergency department, and thus no testing was performed tonight. You are being provided with pain medication (Percocet) and a muscle relaxant (cyclobenzaprine), with prescriptions for these medications electronically submitted to the [facility] pharmacy in [place]. Is important that you rest for the next few days, avoiding all strenuous activity and any unnecessary activity. Going about light, routine activity at home is encouraged, as strict bedrest can worsen back pain. Follow-up with your primary care provider in 3 to 5 days if the symptoms have not resolved. I am prescribing a short course of narcotic pain medication for you. These are potentially dangerous and addictive medications that should be used carefully. These medications may constipate you. Take an lwhe-ipg-asxcaej stool softener (docusate) twice daily with plenty of water while taking these medications. If you go 24 hours without a bowel movement, take rxlo-khs-nbwenus miralax, per package instructions. Do not drink or drive while taking these medications. If you received narcotic or sedating medications while in the emergency department, do not drive for 24 hours. Store this medication in a safe, secure place and out of reach of children. It is a violation of federal law to give or sell this medication to another person or to use in a manner other than prescribed. The ED will not refill narcotic prescriptions, including prescriptions lost or stolen. To dispose of unwanted medications: 1. [facility] at [address] in [place] has a medication drop box. They accept prescription medications (in pill form) Saturday through Saturday 9:00 a.m. to 5:00 p.m. 2. The [facility] accepts prescription medications (in pill form only) for disposal year round. Call for more inf ormation. 3. Contact the [facility] for the next [facility] sponsored prescription drug collection event. , [phone], or [phone]; Forms: Activity restrictions Discharge Date/Time: 09/01/22 21:02
[2022-09-01] MEDS ORDERED: CYCLOBENZAPRINE 10 MG Prepack 2 PO PRN (20:45)
[2022-09-01] MEDS ORDERED: oxyCODONE/ACET 5/325 Prepack 4 PO STA (20:45)
[2022-09-01 21:03] VITALS: BP 138/88
== END 2022-09-01 21:02 | disposition home or self-care (01) ==
LOC: ED 18:06
DX: M54.6 Pain in thoracic spine (principal); X58.XXXA Exposure to other specified factors, initial encounter; Y99.0 Civilian activity done for income or pay
CPT/HCPCS: 1040M; 99282; 99283

== ENCOUNTER 2022-11-09 08:45 | Outpatient (CLI) | payer OTHER ==
[2022-11-09 12:46] LABS: BASOPHILS % (AUTO) 0.6 %; EOSINOPHILS # (AUTO) 0.1 10^3/uL (0.0-0.7); EOSINOPHILS % (AUTO) 1.5 %; LYMPHOCYTES # (AUTO) 1.4 10^3/uL (1.5-3.5); LYMPHOCYTES % (AUTO) 28.7 %; MEAN CORPUSCULAR HEMOGLOBIN 30.5 pg (27.0-31.0); MEAN CORPUSCULAR HGB CONC 33.3 g/dL (32.0-36.0); MEAN CORPUSCULAR VOLUME 91.5 fL (81.0-99.0); MEAN PLATELET VOLUME 9.9 fL (7.9-10.8); MONOCYTES # (AUTO) 0.4 10^3/uL (0.0-1.0); NEUTROPHILS # (AUTO) 2.9 10^3/uL (1.5-6.6); PLT - PLATELET COUNT 221 10^3/uL (130-450); RED BLOOD COUNT 4.59 10^6/uL (4.20-5.40); RED CELL DISTRIBUTION WIDTH 12.2 % (12.0-15.0); WHITE BLOOD COUNT 4.8 x10^3/uL (4.8-10.8)
[2022-11-09 13:09] LABS: ALBUMIN 4.2 g/dL (3.2-5.5); ALBUMIN/GLOBULIN RATIO 1.5 (1.0-2.2); BILIRUBIN,TOTAL 0.4 mg/dL (0.2-1.0); CALCIUM 9.4 mg/dL (8.5-10.3); CREATININE 0.8 mg/dL (0.6-1.3); POTASSIUM 3.8 mmol/L (3.5-4.5)
[2022-11-09 13:18] LABS: ESTIMATED AVERAGE GLUCOSE 100 mg/dL (70-100); HEMOGLOBIN A1c% 5.1 % (4.27-6.07)
[2022-11-09 13:26] LABS: THYROID STIMULATING HORMONE 1.78 uIU/mL (0.34-5.60)
== END 2022-11-09 09:00 | disposition home or self-care (01) ==
LOC: LAB.N 08:45
PROVIDERS: ATTEND Registered Nurse
DX: I10 Essential (primary) hypertension (principal); F41.9 Anxiety disorder, unspecified; G47.00 Insomnia, unspecified
CPT/HCPCS: 36415; 80053; 83036; 84443; 85025

== ENCOUNTER 2022-12-30 09:22 | Emergency (ER) | payer OTHER ==
--- OUTSIDE RECORDS SUMMARY | 2022-12-30 09:44 | EXTERNAL MEDICAL SUMMARY RPT | Continuity of Care Document ---
Author Name Unknown Address [address] [place] [address] Phone Organization [facility] Address [address] [phone] Phone Problems date description facility 2022-11-27 14:36 Unspecified abdominal pain [facility] Social History date description facility
[2022-12-30] MEDS ORDERED: PROCHLORPERAZINE 10 MG/2 ML VIAL IVP STA (10:04)
[2022-12-30] MEDS ORDERED: diphenhydrAMINE INJ 50 MG/ML VIAL IVP STA (10:04)
[2022-12-30] MEDS ORDERED: KETOROLAC 15 MG/ML VIAL IVP STA (10:04)
[2022-12-30] MEDS ORDERED: SODIUM CHLORIDE 0.9% 1,000 ML IV STA (10:04)
--- NOTE | 2022-12-30 10:16 | ED Physician Documentation ---
PD HPI HEADACHE - Stated complaint Stated Complaint: DUNN,NAUSEA - Chief complaint Chief Complaint: Neuro - History obtained from History obtained from: Patient (Gradual onset headache this morning consistent with prior migraines, she was unable to keep down her triptan medication. She is light sensitive. No neck stiffness or fevers.) PD PAST MEDICAL HISTORY - Past Medical History Cardiovascular: Angina, Other Respiratory: None Neuro: Migraines Endocrine/Autoimmune: None GI: None DETACKER: None : Kidney stones HEENT: None Psych: None Musculoskeletal: None Derm: None - Past Surgical History Past Surgical History: Yes General: Cholecystectomy /DETACKER: Hysterectomy - Present Medications Home Medications: Ambulatory Orders Medication Instructions Recorded Confirmed Ondansetron Odt [Zofran] 4 mg TL Q6H PRN #10 tablet 11/02/20 12/13/21 Gabapentin [Neurontin] 100 mg PO HS 12/13/21 12/13/21 HYDROcod/ACETAM 5/325 [Chualar 5/325] 1 ea PO Q6H PRN #14 tablet 12/13/21 Hyoscyamine Sulfate 1 - 2 tab SL Q6HR PRN 12/13/21 12/13/21 LORazepam [Ativan] 0.5 mg PO DAILY PRN 12/13/21 12/13/21 Losartan Potassium 25 mg PO DAILY 12/13/21 12/13/21 Budesonide [Budesonide EC] 3 tab PO DAILY #90 cap 02/28/22 Oxycodone HCl/Acetaminophen 1 - 2 each PO Q6H PRN #14 tablet 02/28/22 [Percocet 5-325 mg Tablet] Cyclobenzaprine [Flexeril] 10 mg PO TID PRN #20 tablet 09/01/22 Oxycodone HCl/Acetaminophen 1 - 2 each PO Q6H PRN #14 tablet 09/01/22 [Percocet 5-325 mg Tablet] - Allergies Allergies/Adverse Reactions: Allergies Allergy/AdvReac Type Severity Reaction Status Date / Time codeine AdvReac Hives Verified 09/01/22 18:28 hydrocodone AdvReac Itching Verified 09/01/22 18:28 tamsulosin AdvReac Dizziness Verified 09/01/22 18:28 - Social History Does the pt smoke?: No Smoking Status: Never smoker Does the pt drink ETOH?: No Does the pt have substance abuse?: No - Immunizations Immunizations are current?: Yes - POLST Patient has POLST: No PD ED PE NORMAL - Vitals Vital signs reviewed: Yes - General General: Alert and oriented X 3, Other (Uncomfortable and photophobic) - Neck Neck: Supple, no meningeal sign - Neuro 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 As such I doubt subarachnoid hemorrhage. There are no infectious symptoms such as fever or stiff neck to make me suspect meningitis. No carbon monoxide exposure by history. After the administration of IV Benadryl, Toradol, and Compazine her headache had come down to a 5 out of 10, initially she was at a 10. She would like a little more medication and to go home. Dexamethasone and a small dose of droperidol were ordered. Departure - Departure Disposition: Home, Self Care Clinical Impression: Migraine Condition: Good Record reviewed to determine appropriate education?: Yes Instructions: ED Headache Migraine Comments: Do not drive today, return if worsening or if not better tomorrow. Follow-up with your primary care physician, next available appointment. Forms: PCP List
[2022-12-30] MEDS ORDERED: DEXAMETHASONE 10 MG/ML VIAL IVP STA (11:12)
[2022-12-30] MEDS ORDERED: DROPERIDOL 5 MG/2 ML VIAL IVP STA (11:12)
[2022-12-30 12:13] VITALS: BP 131/75; O2SAT 98
== END 2022-12-30 12:24 | disposition home or self-care (01) ==
LOC: ED 09:22
DX: G43.909 Migraine, unspecified, not intractable, without status migrainosus (principal)
CPT/HCPCS: 36415; 96374; 96375; 99283; J1200